=== PATIENT | female | born 1960 | race Hispanic/Latino ===

== ENCOUNTER 2019-01-12 16:58 | Emergency (ER) | payer MEDICARE ==
[2019-01-12] MEDS ORDERED: ACETAMINOPHEN EXTRA STRENGTH 500 MG TABLET ONE (18:24)
[2019-01-12] MEDS ORDERED: IBUPROFEN 200 MG TAB ONE (18:25)
[2019-01-12] MEDS ORDERED: IBUPROFEN 400 MG TABLET ONE (18:25)
== END 2019-01-12 18:31 | disposition home or self-care (01) ==
LOC: EDH 16:58
DX: M25.562 Pain in left knee (principal); I10 Essential (primary) hypertension; E07.9 Disorder of thyroid, unspecified; F32.9 Major depressive disorder, single episode, unspecified; F41.9 Anxiety disorder, unspecified; Z96.652 Presence of left artificial knee joint
CPT/HCPCS: 73562

== ENCOUNTER 2019-05-16 15:30 | Inpatient (IN) | payer MEDICARE ==
[~2019-05-16] VITALS: Ht 152.4 cm; Wt 69.9 kg
[2019-05-16 16:08] VITALS: BP 148/62
[2019-05-16] MEDS ORDERED: AMLO10TA7 PO (16:14)
[2019-05-16] MEDS ORDERED: CLON1TAB12 PO (16:14)
[2019-05-16] MEDS ORDERED: LEVO125T95 PO (16:14)
[2019-05-16] MEDS ORDERED: IBUP-2070 PO (16:14)
[2019-05-16 16:23] LABS: APPEARANCE,URINE Cloudy (CLEAR); BILIRUBIN,URINE Small (NEGATIVE); COLOR,URINE Dark Yellow (YELLOW); GLUCOSE, URINE (UA) Negative (NEGATIVE); KETONES,URINE Trace mg/dL (NEGATIVE); LEUKOCYTE ESTERASE ,URINE Small (NEGATIVE); NITRATE,URINE Negative (NEGATIVE); OCCULT BLOOD,URINE Negative (NEGATIVE); PH,URINE 5.5 (5.0-8.0); PROTEIN,URINE POS 1+ mg/dL (NEGATIVE)
[2019-05-16 16:34] LABS: BACTERIA,URINE Few /HPF (None Seen); MUCUS,URINE Moderate LPF (None Seen)
--- NOTE | 2019-05-16 18:33 | NUR ---
REPORTED ABNORMAL URINE LABS TO DR. CARIAS, NEW ORDERS TO GIVE PT GENTAMICIN 240MG IV IN HOLDING AREA DOS.
[2019-05-16] MEDS ORDERED: PHARMACY COMMUNICATION MISC SCH (18:45)
[2019-05-17] VITALS (22 sets, daily range): BP systolic 105–151; BP diastolic 59–81
[2019-05-17] MEDS ORDERED: GENTAMICIN SULFATE 240 MG in SODIUM CHLORIDE 0.9% 100 ML IV PRN (08:00)
[2019-05-17] MEDS ORDERED: LACTATED RINGERS 1000ML 1,000 ML IV ONE (09:14)
[2019-05-17] MEDS ORDERED: CEFAZOLIN SODIUM 1 GM VIAL ONE ×2 (10:01→11:23)
[2019-05-17] MEDS ORDERED: ACETAMINOPHEN 325 MG TAB ONE (12:31)
[2019-05-17] MEDS ORDERED: KETOROLAC TROMETHAMINE 15MG/ML ONE (12:31)
[2019-05-17] MEDS ORDERED: CELECOXIB 200 MG CAP ONE (12:32)
[2019-05-17] MEDS ORDERED: OXYCODONE HCL 10 MG TAB.SR.12H PO ONE (12:32)
[2019-05-17] MEDS ORDERED: TRANEXAMIC ACID 1000MG/10ML IV ONE ×2 (13:00→17:04)
[2019-05-17] MEDS ORDERED: GENTAMICIN SULFATE 240 MG in SODIUM CHLORIDE 0.9% 100 ML IV SCH (13:00)
[2019-05-17] MEDS ORDERED: MIDAZOLAM HCL 1 MG/ML 2ML VIAL ONE (13:22)
[2019-05-17] MEDS ORDERED: FENTANYL CITRATE PF 50 MCG/1 ML 2ML VIAL ONE ×2 (13:22→16:52)
[2019-05-17] MEDS ORDERED: PROPOFOL 10 MG/ML 20ML VIAL IV ONE (13:22)
[2019-05-17] MEDS ORDERED: LIDOCAINE PF 2% 5ML ABBOJECT ONE (13:22)
[2019-05-17] MEDS ORDERED: ROPIVACAINE 0.5% 5MG/ML 30ML IJ ONE (13:25)
[2019-05-17] MEDS ORDERED: ROCURONIUM 10MG/1ML SYR 10 MG/ML ML ONE (13:25)
[2019-05-17] MEDS ORDERED: NEOSTIGMINE 5MG/5ML SYR IV ONE (14:33)
[2019-05-17] MEDS ORDERED: GLYCOPYRROLATE 1 MG/5 ML SYRINGE ONE (14:33)
[2019-05-17] MEDS ORDERED: ONDANSETRON HCL 4 MG/2 ML VIAL ONE (15:30)
[2019-05-17] MEDS ORDERED: KETOROLAC TROMETHAMINE 30MG/ML ONE (15:30)
[2019-05-17] MEDS ORDERED: DEXAMETHASONE SOD PHOSPHATE 10MG/ML 1ML VIAL ONE (15:30)
[2019-05-17] MEDS ORDERED: TRAMADOL HCL 50 MG TABLET PO PRN (16:30)
[2019-05-17] MEDS ORDERED: POTASSIUM CHLORIDE 20 MEQ ERTAB PO PRN (16:30)
[2019-05-17] MEDS ORDERED: OXYCODONE HCL 5 MG TAB PO PRN (16:30)
[2019-05-17] MEDS ORDERED: POTASSIUM CHLORIDE 20MEQ/100ML 100 ML IV PRN (16:30)
[2019-05-17] MEDS ORDERED: ONDANSETRON HCL 4 MG/2 ML VIAL IVP PRN (16:30)
[2019-05-17] MEDS ORDERED: FERROUS FUMARATE 324 MG TABLET PO PRN (16:30)
[2019-05-17] MEDS ORDERED: LIDOCAINE HCL-MPF 1% 2ML VIAL IV PRN (16:30)
[2019-05-17] MEDS ORDERED: CALCIUM CARBONATE 500 MG TABLET PO PRN (16:30)
[2019-05-17] MEDS: ACETAMINOPHEN EXTRA STRENGTH 500 MG TABLET PO SCH (16:30)
[2019-05-17] MEDS ORDERED: POTASSIUM CHLORIDE 10% ELIXIR 20 MEQ/15 ML UDCUP PO PRN (16:30)
[2019-05-17] MEDS ORDERED: TEMAZEPAM 15 MG CAPSULE PO PRN (16:30)
[2019-05-17 16:35] LABS: BF EOSINOPHIL 1 %; BF LYMPHOCYTE 75 %; BF MESOTHELIAL 1 %; BF MONOCYTE 12 %
[2019-05-17 16:38] LABS: APPEARANCE BODY FLUID SLIGHTLY CLOUDY (CLEAR); COLOR,BODY FLUID RED (LT YELLOW); SPECIMENTYPE,BODY FLUID SYNOVIAL; TOTAL VOLUME,BODY FLUID 10 mL
[2019-05-17 16:41] LABS: BODY FLUID RBC 1650 /cu. mm.
[2019-05-17 16:43] LABS: BODY FLUID WBC 23 /cu. mm.
[2019-05-17] MEDS ORDERED: MEPERIDINE-PF 25 MG/ML SYG ONE ×2 (17:22→18:02)
[2019-05-17] MEDS: SODIUM CHLORIDE 0.9% 1000ML 1,000 ML IV SCH (18:25)
[2019-05-17] MEDS: KETOROLAC TROMETHAMINE 15MG/ML IV PRN (18:27)
[2019-05-17] MEDS ORDERED: CLONAZEPAM 1 MG TABLET PO PRN (18:45)
[2019-05-17] MEDS: ASPIRIN 325 MG TABLET PO SCH (20:22)
[2019-05-17] MEDS: CELECOXIB 200 MG CAP PO SCH (20:22)
[2019-05-17] MEDS: FAMOTIDINE 20MG TAB 20 MG TAB PO SCH (20:22)
[2019-05-17] MEDS: AMLODIPINE BESYLATE 5 MG TAB PO SCH (20:22)
[2019-05-17] MEDS: PREGABALIN 25 MG CAP PO SCH (20:22)
[2019-05-17] MEDS: OXYCODONE HCL 5 MG TAB PO PRN (20:23)
[2019-05-17] MEDS: CEFAZOLIN SODIUM 1 GM VIAL IVP SCH (21:39)
[2019-05-18] VITALS: BP 127/72
--- NOTE | 2019-05-18 | NUR ---
UNABLE TO VOID PATIENT UNABLE TO VOID, BLADDER PALPATION DISTENDED , BLADDER SCANNER SHOWING 693 CC,STRAIGHT CATHETER PERFORMED BY YARELIS BATEMAN R.N. USING A 16 GAUGE [place] CATHETER, TOLERATED WELL, OBTAINED 750 CC OF CLEAR YELLOW URINE, TOLERATED WELL
[2019-05-18] MEDS: ACETAMINOPHEN EXTRA STRENGTH 500 MG TABLET PO SCH ×4 (00:32→23:57)
[2019-05-18] MEDS: KETOROLAC TROMETHAMINE 15MG/ML IV PRN (00:32)
[2019-05-18] MEDS: SODIUM CHLORIDE 0.9% 1000ML 1,000 ML IV SCH ×2 (00:33→12:25)
[2019-05-18] MEDS: OXYCODONE HCL 5 MG TAB PO PRN (02:49)
[2019-05-18 04:00] VITALS: BP 134/72
[2019-05-18] MEDS ORDERED: LEVOTHYROXINE 125 MCG TABLET ONE (05:22)
[2019-05-18 05:23] LABS: HEMATOCRIT 35.2 % (36-48); MEAN CORPUSCULAR HEMOGLOBIN 29.8 pg (27.0-33.0); MEAN CORPUSCULAR HGB CONC 33.1 g/dL (32.0-36.0); MEAN CORPUSCULAR VOLUME 90.1 fL (79-99); PLATELET COUNT (AUTO) 357 K/uL (130-400); RED BLOOD CELL COUNT(AUTO) 3.91 MIL/uL (4.00-5.50); WHITE BLOOD COUNT (AUTO) 11.2 K/uL (4.8-10.8)
[2019-05-18] MEDS: LEVOTHYROXINE 125 MCG TABLET PO SCH (05:26)
[2019-05-18] MEDS: CEFAZOLIN SODIUM 1 GM VIAL IVP SCH (05:26)
[2019-05-18 05:34] LABS: CREATININE 0.5 mg/dL (0.5-1.5)
[2019-05-18] MEDS ORDERED: HYDROMORPHONE PCA 10 MG/50 ML 50 ML IV ONE (05:57)
[2019-05-18] MEDS ORDERED: NALOXONE HCL 0.4 MG/1 ML ML IVP PRN (06:00)
[2019-05-18] MEDS ORDERED: HYDROMORPHONE PCA 10 MG/50 ML 50 ML IV PRN (06:00)
[2019-05-18 08:00] VITALS: BP 128/69
[2019-05-18] MEDS: POLYETHYLENE GLYCOL 3350 17 GM POWD.PACK PO SCH (08:50)
[2019-05-18] MEDS: CELECOXIB 200 MG CAP PO SCH ×2 (08:51→21:51)
[2019-05-18] MEDS: ASPIRIN 325 MG TABLET PO SCH ×2 (08:51→21:50)
[2019-05-18] MEDS: FAMOTIDINE 20MG TAB 20 MG TAB PO SCH ×2 (08:52→21:51)
[2019-05-18] MEDS: PREGABALIN 25 MG CAP PO SCH ×2 (08:52→21:51)
--- NOTE | 2019-05-18 10:30 | NUR ---
INITIAL ANF REFERRAL MET W PT ALONE, AAO X3. S/P TKA REVISION, LIVES ALONE BUT WILL GO LIVE WTH DAUGHTER FAROOQ JOHNS"SHE HAS FIXED THINGS UP FOR ME" NO STAIRS IN THE HOME, HAS STD WALKER, HAS BENCH IN SHOWER, FAUSTINA FOR [facility] AND REFERRAL SENT- CALL RETURNED, ACCEPTED. ADDRESS CONFIRMED FOR [facility] [address] [address] Addendum: 05/18/19 at 1535 by KALA GUTIERREZ RN CM Amended: Links added.
[2019-05-18 12:00] VITALS: BP 126/65
[2019-05-18 16:00] VITALS: BP 134/60
[2019-05-18 19:00] VITALS: BP 138/62
[2019-05-18] MEDS: AMLODIPINE BESYLATE 5 MG TAB PO SCH (21:51)
[2019-05-19] VITALS: BP 112/70
[2019-05-19] MEDS: DiphenhydrAMINE HCL 50 MG/ML VIAL IVP PRN ×2 (00:10→13:40)
[2019-05-19 04:00] VITALS: BP 124/60
[2019-05-19] MEDS: LEVOTHYROXINE 125 MCG TABLET PO SCH (05:26)
[2019-05-19 07:37] VITALS: BP 108/58
--- NOTE | 2019-05-19 08:43 | NUR ---
ACCEPTED AT [facility]. WILL INFORM PRIMARY RN Addendum: 05/19/19 at 0847 by KALA GUTIERREZ RN CM Amended: Links added.
[2019-05-19] MEDS: ACETAMINOPHEN EXTRA STRENGTH 500 MG TABLET PO SCH ×2 (09:30→16:22)
[2019-05-19] MEDS: CELECOXIB 200 MG CAP PO SCH (09:30)
[2019-05-19] MEDS: ASPIRIN 325 MG TABLET PO SCH (09:30)
[2019-05-19] MEDS: PREGABALIN 25 MG CAP PO SCH (09:30)
[2019-05-19] MEDS: FAMOTIDINE 20MG TAB 20 MG TAB PO SCH (09:31)
[2019-05-19] MEDS: POLYETHYLENE GLYCOL 3350 17 GM POWD.PACK PO SCH (09:31)
[2019-05-19 11:35] VITALS: BP 120/80
[2019-05-19] MEDS ORDERED: ASPI-1012 PO (12:15)
[2019-05-19] MEDS ORDERED: HYDR-4457 PO (12:15)
[2019-05-19] MEDS ORDERED: BISACODYL 10 MG SUPP.RECT RC ONE (13:34)
[2019-05-19] MEDS ORDERED: BISACODYL 10 MG SUPP.RECT RC PRN (13:45)
[2019-05-19 17:03] VITALS: BP 136/60
--- NOTE | 2019-05-19 17:25 | NUR ---
DISCHARGE INSTRUCTIONS REVIEWED INSTRUCTIONS WITH PT, PRESCRIPTIONS GIVEN TO PT.
--- NOTE | 2019-05-19 17:45 | NUR ---
DR. JV LEUNG AWARE THAT DULCOLAX SUPPOSITORY ADMINISTERED AND NO REPORTED BOWEL MOVEMENT YET, PATIENT DOES REPORT PASSING GAS. LAST BOWEL MOVEMENT 05/16/19. INFORMED MD THAT PATIENT STATES SHE TAKES MIRALAX EVERYDAY AT HOME. MD DID OKAY TO PROCEED WITH DISCHARGE TODAY.
--- NOTE | 2019-05-19 17:45 | NUR ---
DISCHARGE PERFORMED DRESSING CHANGE TO LEFT KNEE INCISINE, CLEANSED WITH BETADINE, COVERED WITH 4X4 GAUZE AND SECURED WITH MEDIPORE TAPE. REAPPLIED FARZANA STOCKINGS AFTER DRESSING CHANGE. REPORT GIVEN TO NURSE OF [facility]. REINFORCED DISCHARGE TEACHING REGARDING RX, F/U WITH DR. CARIAS, FARZANA STOCKINGS, AND DR. CARIAS DISCHARGE INSTRUCTIONS. PATIENT VERBALIZES UNDERSTANDING OF DISCHARGE TEACHING. REMOVED 20GIV FROM LEFT FA, CATHETER TIP INTACT.
[2019-05-20] MEDS ORDERED: BISACODYL 10 MG SUPP.RECT RC PRN (16:30)
== END 2019-05-19 18:15 | disposition home health service (06) | DRG 468 ==
LOC: DAHIP 05-17 09:03 → 4AH 05-17 17:34
PROVIDERS: ADMIT Orthopaedic Surgery; ATTEND Orthopaedic Surgery
PROC: 3E0T3BZ Introduction of Anesthetic Agent into Peripheral Nerves and Plexi, Percutaneous Approach (ICD-10-PCS; 2019-05-17)
PROC: 0QRF0JZ Replacement of Left Patella with Synthetic Substitute, Open Approach (ICD-10-PCS; 2019-05-17)
PROC: 0SPW0JZ Removal of Synthetic Substitute from Left Knee Joint, Tibial Surface, Open Approach (ICD-10-PCS; principal; 2019-05-17 14:37)
PROC: 0SRW0J9 Replacement of Left Knee Joint, Tibial Surface with Synthetic Substitute, Cemented, Open Approach (ICD-10-PCS; 2019-05-17 14:37)
DX: M25.562 Pain in left knee (principal); Z96.652 Presence of left artificial knee joint; E03.9 Hypothyroidism, unspecified; I10 Essential (primary) hypertension; M21.00 Valgus deformity, not elsewhere classified, unspecified site; G89.29 Other chronic pain; M54.9 Dorsalgia, unspecified; Y83.8 Other surgical procedures as the cause of abnormal reaction of the patient, or of later complication, without mention of misadventure at the time of the procedure; Z82.49 Family history of ischemic heart disease and other diseases of the circulatory system; Y92.89 Other specified places as the place of occurrence of the external cause; Z83.3 Family history of diabetes mellitus; Z91.013 Allergy to seafood
CPT/HCPCS: 36415; 80048; 81001; 85027; 87070; 87076; 87077; 87186; 87205; 87641; 88300; 88304; 88311; 89051; 96365; 96374; 97039; A4344; G0378; J0690; J1100; J1170; J1200; J1580; J1885; J2001; J2175; J2250; J2405; J2704; J2710; J2795; J3010; J3490; J7030; J7120

== ENCOUNTER 2019-07-24 07:04 | Day surgery (SDC) | payer MEDICARE ==
[2019-07-21 14:05] LABS: BASOPHILS % (AUTO) 0.7 % (0.0-5.0); EOSINOPHILS % (AUTO) 1.9 % (0.0-8.0); HEMATOCRIT 40.2 % (36-48); LYMPHOCYTES % (AUTO) 32.8 % (21.0-51.0); MEAN CORPUSCULAR HEMOGLOBIN 29.1 pg (27.0-33.0); MEAN CORPUSCULAR VOLUME 88.1 fL (79-99); NEUTROPHILS % (AUTO) 56.6 % (40.0-77.0); PLATELET COUNT (AUTO) 400 K/uL (130-400); RED BLOOD CELL COUNT(AUTO) 4.56 MIL/uL (4.00-5.50); RED CELL DISTRIBUTION WIDTH 14.3 % (11.0-15.5)
[2019-07-21 14:14] VITALS: BP 143/61
[2019-07-21 14:14] LABS: CREATININE 0.6 mg/dL (0.5-1.5); POTASSIUM 4.2 mmol/L (3.5-5.1)
[2019-07-24] VITALS (14 sets, daily range): BP systolic 113–138; BP diastolic 44–79
[~2019-07-24] VITALS: Ht 152.4 cm; Wt 69.8 kg
[2019-07-24] MEDS: CEFAZOLIN SODIUM 1 GM VIAL IVP SCH ×2 (06:00→08:58)
[~2019-07-24 07:04] MED LIST: AMLO5TAB4 PO; CLON1TAB12 PO; LEVO125T95 PO
[2019-07-24] MEDS ORDERED: LACTATED RINGERS 1000ML 1,000 ML IV ONE (07:45)
[2019-07-24] MEDS ORDERED: SUCCINYLCHOLINE 200MG/10ML SYR ONE (08:11)
[2019-07-24] MEDS ORDERED: MIDAZOLAM HCL 1 MG/ML 2ML VIAL ONE (08:11)
[2019-07-24] MEDS ORDERED: LIDOCAINE PF 2% 5ML ABBOJECT ONE (08:11)
[2019-07-24] MEDS ORDERED: FENTANYL CITRATE PF 50 MCG/1 ML 2ML VIAL ONE ×2 (08:12→10:23)
[2019-07-24] MEDS ORDERED: PROPOFOL 10 MG/ML 20ML VIAL IV ONE (08:12)
[2019-07-24] MEDS ORDERED: ROCURONIUM 10MG/1ML SYR 10 MG/ML ML ONE (08:12)
[2019-07-24] MEDS ORDERED: ONDANSETRON HCL 4 MG/2 ML VIAL ONE (08:12)
[2019-07-24] MEDS ORDERED: NEOSTIGMINE 5MG/5ML SYR IV ONE (09:04)
[2019-07-24] MEDS ORDERED: LIDOCAINE HCL 4% LTA SOL 4 ML VIAL ONE (09:04)
[2019-07-24] MEDS ORDERED: GLYCOPYRROLATE 1 MG/5 ML SYRINGE ONE (09:04)
[2019-07-24] MEDS ORDERED: KETOROLAC TROMETHAMINE 30MG/ML ONE (09:46)
[2019-07-24] MEDS ORDERED: MEPERIDINE-PF 25 MG/ML SYG ONE (09:46)
[2019-07-24] MEDS ORDERED: CEPH500B PO (09:51)
[2019-07-24] MEDS ORDERED: MELO-108 PO (09:51)
[2019-07-24] MEDS ORDERED: ACET1TAB12 PO (09:51)
[2019-07-24] MEDS ORDERED: MORPHINE SULFATE 2 MG/ML 1ML SYG ONE (10:04)
== END 2019-07-24 12:05 | disposition home or self-care (01) ==
LOC: DAH 07:04
PROVIDERS: ATTEND Orthopaedic Surgery
DX: M23.203 Derangement of unspecified medial meniscus due to old tear or injury, right knee (principal); M19.90 Unspecified osteoarthritis, unspecified site; I10 Essential (primary) hypertension; E03.9 Hypothyroidism, unspecified; Z98.890 Other specified postprocedural states; Z79.899 Other long term (current) drug therapy; G89.29 Other chronic pain; K21.9 Gastro-esophageal reflux disease without esophagitis; M94.261 Chondromalacia, right knee
CPT/HCPCS: 29881; 36415; 80048; 85025; A4215; A4221; A4222; A4223; A4606; A4649; A4663; A4930; A5120; A6223; J0330; J0690; J1885; J2001; J2175; J2250; J2405; J2704; J2710; J3010 ×2; J3490; J7120

== ENCOUNTER 2020-03-11 11:46 | Day surgery (SDC) | payer MEDICARE ==
[2020-03-08 15:44] VITALS: BP 129/71
[2020-03-11] VITALS (20 sets, daily range): BP systolic 111–143; BP diastolic 50–75
[~2020-03-11] VITALS: Ht 154.9 cm; Wt 71.2 kg
[~2020-03-11 11:46] MED LIST changes: +AMLO10TA7 PO; -AMLO5TAB4 PO; +IBUP-2070 PO; +LEVO112T7 PO; -LEVO125T95 PO; +PANT40TA25 PO
[2020-03-11] MEDS ORDERED: FENTANYL CITRATE PF 50 MCG/1 ML 2ML VIAL ONE (12:11)
[2020-03-11] MEDS ORDERED: MIDAZOLAM HCL 1 MG/ML 2ML VIAL ONE (12:11)
[2020-03-11] MEDS ORDERED: FLUMAZENIL 0.1MG/1ML 5ML VIAL IV ONE (12:12)
[2020-03-11] MEDS ORDERED: NALOXONE HCL 0.4 MG/1 ML ML ONE (12:13)
[2020-03-11] MEDS ORDERED: LIDOCAINE HCL 1% 20 ML VIAL ONE (12:19)
[2020-03-11] MEDS ORDERED: DEXAMETHASONE SOD PHOSPHATE 4 MG/ML 1ML VIAL ONE (12:19)
[2020-03-11] MEDS ORDERED: BUPIVACAINE/PF 0.25% 30ML VIAL IJ ONE (12:19)
[2020-03-11] MEDS ORDERED: SODIUM CHLORIDE 0.9% 10 ML VIAL ONE (12:36)
[2020-03-11] MEDS ORDERED: IOPAMIDOL 10 ML VIAL ONE (12:44)
[2020-03-11] MEDS ORDERED: DiphenhydrAMINE HCL 50 MG/ML VIAL ONE (12:55)
[2020-03-11] MEDS ORDERED: LACTATED RINGERS 1000ML 1,000 ML IV ONE (14:10)
--- NOTE | 2020-03-11 14:45 | NUR ---
PAIN PAIN DR. IRAHETA MADE AWARE PT STILL RATES RIGHT KNEE PAIN A TEN OUT OF TEN. STATES PT STARTED PRIOR WITH A PAIN LEVEL OF TEN. INSTRUCTED TO HAVE PT GO HOME AND TAKE HER HOME MEDICATIONS. PT AND DAUGHTER BOTH VERBALIZED UNDERSTANDING.
== END 2020-03-11 15:25 | disposition home or self-care (01) ==
LOC: DAH 11:46
PROVIDERS: ATTEND Family Medicine Sports Medicine
DX: M12.861 Other specific arthropathies, not elsewhere classified, right knee (principal); Z11.59 Encounter for screening for other viral diseases; M25.561 Pain in right knee; G89.29 Other chronic pain; I10 Essential (primary) hypertension; E03.9 Hypothyroidism, unspecified; Z91.013 Allergy to seafood; Z79.891 Long term (current) use of opiate analgesic; Z96.653 Presence of artificial knee joint, bilateral; Z98.890 Other specified postprocedural states; Z79.899 Other long term (current) drug therapy; Z83.3 Family history of diabetes mellitus; Z82.49 Family history of ischemic heart disease and other diseases of the circulatory system
CPT/HCPCS: 36415; 64454; 73562; A4215; A4216; A4221; A4222; A4223 ×2; A4663; J1100; J1200; J2250; J3010; J3490; J7120; Q9966; U0003; J2310

== ENCOUNTER 2020-03-27 09:00 | Inpatient (IN) | payer MEDICARE ==
[~2020-03-27] VITALS: Ht 152.4 cm; Wt 70.9 kg
[~2020-03-27 09:00] MED LIST changes: -IBUP-2070 PO; -PANT40TA25 PO; +PANT40TA54 PO
[2020-05-20 12:06] LABS: APPEARANCE,URINE Clear (CLEAR); BILIRUBIN,URINE Negative (NEGATIVE); COLOR,URINE Yellow (YELLOW); GLUCOSE, URINE (UA) Negative (NEGATIVE); KETONES,URINE Negative (NEGATIVE); LEUKOCYTE ESTERASE ,URINE Trace (NEGATIVE); NITRATE,URINE Negative (NEGATIVE); OCCULT BLOOD,URINE Negative (NEGATIVE); PH,URINE 5.5 (5.0-8.0); PROTEIN,URINE Negative (NEGATIVE)
[2020-05-20 12:06] LABS: BASOPHILS % (AUTO) 0.3 % (0.0-5.0); EOSINOPHILS % (AUTO) 2.6 % (0.0-8.0); HEMATOCRIT 35.2 % (36-48); LYMPHOCYTES % (AUTO) 38.9 % (21.0-51.0); MEAN CORPUSCULAR HEMOGLOBIN 23.5 pg (27.0-33.0); MEAN CORPUSCULAR HGB CONC 30.4 g/dL (32.0-36.0); MEAN CORPUSCULAR VOLUME 77.2 fL (79-99); MONOCYTES % (AUTO) 7.9 % (3.0-13.0); NEUTROPHILS % (AUTO) 50.1 % (40.0-77.0); PLATELET COUNT (AUTO) 380 K/uL (130-400); RED BLOOD CELL COUNT(AUTO) 4.56 MIL/uL (4.00-5.50); WHITE BLOOD COUNT (AUTO) 6.4 K/uL (4.8-10.8)
[2020-05-20 12:21] LABS: CREATININE 0.6 mg/dL (0.5-1.5); POTASSIUM 4.2 mmol/L (3.5-5.1)
[2020-05-20 12:29] LABS: INR 0.93 (0.85-1.15); PROTHROMBIN TIME 10.1 SEC (9.6-11.6)
[2020-05-20 12:32] LABS: BACTERIA,URINE Rare /HPF (None Seen); MUCUS,URINE Few LPF (None Seen); RBC,URINE 0-1 /HPF (0-1); SQUAMOUS EPITHELIAL CELL,UR Rare /HPF (0-2); WBC,URINE 0-1 /HPF (0-1)
[2020-05-24 10:52] VITALS: BP 134/66
[2020-05-24] MEDS ORDERED: FISH OIL PO (11:55)
[2020-05-24] MEDS ORDERED: ASCO500C18 PO (11:55)
[2020-05-24] MEDS ORDERED: MV-M1TAB57 PO (11:55)
[2020-05-24] MEDS ORDERED: VENL-53 PO (11:55)
--- NOTE | 2020-05-24 12:37 | NUR ---
LABS ABNORMAL H&H, AND URINE REPORTED TO DR. CARIAS. ORDERS RECEIVED TO TYPE AND SCREEN DOS, NO ORDERS FOR URINE REPORTED
[2020-05-27] VITALS (25 sets, daily range): BP systolic 113–148; BP diastolic 57–93
[2020-05-27] MEDS ORDERED: LACTATED RINGERS 1000ML 1,000 ML IV ONE (08:48)
--- NOTE | 2020-05-27 09:00 | NUR ---
PREOP PT ARRIVED VIA W/C PT IN NO DISTRESS. PT REPORTED SHE FELL YESTERDAY ON HER RT KNEE. DR CARIAS WAS INFORMED AND EVAL KNEE. NO NEW ORDERS AT THIS TIME
[2020-05-27] MEDS ORDERED: PROPOFOL 10 MG/ML 20ML VIAL IV ONE (09:11)
[2020-05-27] MEDS ORDERED: LIDOCAINE PF 2% 5ML ABBOJECT ONE (09:11)
[2020-05-27] MEDS ORDERED: ROCURONIUM 10MG/1ML SYR 10 MG/ML ML ONE (09:11)
[2020-05-27] MEDS ORDERED: MIDAZOLAM HCL 1 MG/ML 2ML VIAL ONE (09:11)
[2020-05-27] MEDS ORDERED: ROPIVACAINE 0.5% 5MG/ML 30ML IJ ONE ×2 (09:12→09:48)
[2020-05-27] MEDS ORDERED: TRANEXAMIC ACID 1000MG/10ML ONE (09:23)
[2020-05-27] MEDS ORDERED: CEFAZOLIN SODIUM 1 GM VIAL ONE (09:23)
[2020-05-27] MEDS: CEFAZOLIN SODIUM 1 GM VIAL IVP SCH ×3 (09:35→16:46)
[2020-05-27] MEDS ORDERED: PHENYLEPHRINE HCL 10 MG/ML 1ML VIAL IV ONE (10:23)
[2020-05-27] MEDS ORDERED: EPHEDRINE SULFATE 50 MG/ML AMPULE ONE (10:24)
[2020-05-27] MEDS ORDERED: FENTANYL CITRATE PF 50 MCG/1 ML 2ML VIAL ONE (10:36)
[2020-05-27] MEDS ORDERED: CEFAZOLIN SODIUM 1 GM VIAL IRRIG ONE (10:48)
[2020-05-27] MEDS ORDERED: GLYCOPYRROLATE 1 MG/5 ML SYRINGE ONE (11:17)
[2020-05-27] MEDS ORDERED: NEOSTIGMINE 5MG/5ML SYR IV ONE (11:17)
[2020-05-27] MEDS ORDERED: ONDANSETRON HCL 4 MG/2 ML VIAL ONE (11:19)
[2020-05-27] MEDS ORDERED: POTASSIUM CHLORIDE 20 MEQ ERTAB PO PRN (11:30)
[2020-05-27] MEDS ORDERED: TRAMADOL HCL 50 MG TABLET PO PRN (11:30)
[2020-05-27] MEDS ORDERED: CALCIUM CARBONATE 500 MG TABLET PO PRN (11:30)
[2020-05-27] MEDS ORDERED: POTASSIUM CHLORIDE 10% ELIXIR 20 MEQ/15 ML UDCUP PO PRN (11:30)
[2020-05-27] MEDS ORDERED: POTASSIUM CHLORIDE 20MEQ/100ML 100 ML IV PRN (11:30)
[2020-05-27] MEDS ORDERED: TEMAZEPAM 15 MG CAPSULE PO PRN (11:30)
[2020-05-27] MEDS ORDERED: DiphenhydrAMINE HCL 50 MG/ML VIAL IVP PRN (11:30)
[2020-05-27] MEDS ORDERED: LIDOCAINE HCL-MPF 1% 2ML VIAL IV PRN (11:30)
[2020-05-27] MEDS: ACETAMINOPHEN EXTRA STRENGTH 500 MG TABLET PO SCH ×2 (11:30→20:13)
[2020-05-27] MEDS ORDERED: FERROUS FUMARATE 324 MG TABLET PO PRN (11:30)
[2020-05-27] MEDS ORDERED: OXYCODONE HCL 5 MG TAB PO PRN (11:30)
[2020-05-27] MEDS ORDERED: MEPERIDINE-PF 25 MG/ML SYG ONE ×3 (12:10→13:12)
[2020-05-27] MEDS ORDERED: KETOROLAC TROMETHAMINE 30MG/ML ONE (12:38)
[2020-05-27] MEDS: SODIUM CHLORIDE 0.9% 1000ML 1,000 ML IV SCH ×2 (13:40→21:27)
[2020-05-27] MEDS ORDERED: HYDROMORPHONE PCA 10 MG/50 ML 50 ML IV PRN (13:45)
--- NOTE | 2020-05-27 14:16 | NUR ---
PHARMACY SPOKE TO IGNACIO FROM PHARMACY TO REPORT DILAUDID RADAR TECHNICIAN CARTRIDGES NOT AVAILABLE IN [facility] AND NEED TO BE RESTOCKED.
--- NOTE | 2020-05-27 14:50 | NUR ---
PHARMACY HAVE NOT RECEIVED DILAUDID LIBRARY PAGE CARTRIDGE YET. SPOKE TO POONAM FROM PHARMACY AND INFORMED I HAD CALLED ALREADY AND STILL WAITING TO RECEIVE MEDICATION.
--- NOTE | 2020-05-27 17:40 | NUR ---
CM NOTE/FAUSTINA UNABLE TO MEET WITH PATIENT, NEXT OF KIN CALLED, FAROOQ HORAN. FAUSTINA COMPLETED FOR [facility] AND ANY DME IN NETWORK.
[2020-05-27 19:50] LABS: APPEARANCE BODY FLUID BLOODY (CLEAR); BODY FLUID WBC 16 /cu. mm.; COLOR,BODY FLUID RED (LT YELLOW); SPECIMENTYPE,BODY FLUID SYNOVIAL; TOTAL VOLUME,BODY FLUID 10 mL
[2020-05-27 19:51] LABS: BODY FLUID RBC 26600 /cu. mm.
[2020-05-27] MEDS: CELECOXIB 200 MG CAP PO SCH (20:12)
[2020-05-27] MEDS: PREGABALIN 25 MG CAP PO SCH (20:12)
[2020-05-27] MEDS: ASPIRIN 81MG TAB.CHEW PO SCH (20:12)
[2020-05-27] MEDS ORDERED: FAMOTIDINE 20MG TAB 20 MG TAB PO SCH (21:00)
--- NOTE | 2020-05-27 21:38 | NUR ---
NO VOID PATIENT UNABLE TO VOID ON HER OWN. PATIENT WAS SCANNED WITH BLADDER SCANNER AND SHOWED TO HAVE 755ML OF URINE IN BLADDER. PATIENT WAS THEN STRAIGHT CATHETERIZED AND DRAINED 800MLS.
[2020-05-27 21:42] LABS: BF LYMPHOCYTE 23 %
[2020-05-28] MEDS: CEFAZOLIN SODIUM 1 GM VIAL IVP SCH (00:15)
[2020-05-28] MEDS: OXYCODONE HCL 5 MG TAB PO PRN ×3 (02:37→20:06)
[2020-05-28] MEDS: ACETAMINOPHEN EXTRA STRENGTH 500 MG TABLET PO SCH ×3 (02:38→20:03)
--- NOTE | 2020-05-28 03:08 | NUR ---
ACTIVITY PATIENT ASSISTED TO EDGE OF BED TO DANGLE LEGS OFF BED PER ORDERS. PATIENT TOLERATED WELL AND ASSISTED BACK TO BED.
[2020-05-28 03:39] LABS: HEMATOCRIT 29.9 % (36-48); MEAN CORPUSCULAR HEMOGLOBIN 23.1 pg (27.0-33.0); MEAN CORPUSCULAR HGB CONC 30.1 g/dL (32.0-36.0); MEAN CORPUSCULAR VOLUME 76.9 fL (79-99); PLATELET COUNT (AUTO) 356 K/uL (130-400); RED BLOOD CELL COUNT(AUTO) 3.89 MIL/uL (4.00-5.50); RED CELL DISTRIBUTION WIDTH 17.7 % (11.0-15.5); WHITE BLOOD COUNT (AUTO) 8.9 K/uL (4.8-10.8)
[2020-05-28 03:54] LABS: CREATININE 0.5 mg/dL (0.5-1.5)
[2020-05-28 04:00] VITALS: BP 143/88
[2020-05-28] MEDS ORDERED: LEVOTHYROXINE 112 MCG TABLET ONE (04:52)
[2020-05-28] MEDS: ONDANSETRON HCL 4 MG/2 ML VIAL IVP PRN ×4 (04:54→20:03)
[2020-05-28] MEDS: LEVOTHYROXINE 112 MCG TABLET PO SCH (04:54)
[2020-05-28] MEDS: SODIUM CHLORIDE 0.9% 1000ML 1,000 ML IV SCH ×2 (07:27→10:55)
[2020-05-28] MEDS: CLONAZEPAM 1 MG TABLET PO PRN ×2 (07:52→20:04)
[2020-05-28 08:06] VITALS: BP 153/76
[2020-05-28] MEDS: FISH OIL 1000 MG/CAP PO SCH (09:00)
[2020-05-28] MEDS ORDERED: NON-FORMULARY MEDICATION 1 EACH (Ascorbic Acid (Vitamin C) 500 MG) PO SCH (09:00)
[2020-05-28] MEDS ORDERED: VENLAFAXINE HCL 37.5 MG PO SCH (09:00)
[2020-05-28] MEDS: VENLAFAXINE HCL XR 37.5 MG CAP PO SCH (09:00)
[2020-05-28] MEDS: PANTOPRAZOLE SODIUM 40 MG TABLET.DR PO SCH (09:00)
[2020-05-28] MEDS ORDERED: NON-FORMULARY MEDICATION 1 EACH (Amlodipine Besylate 10 MG) PO SCH (09:00)
[2020-05-28] MEDS: ASCORBIC ACID 500 MG TAB PO SCH (09:00)
[2020-05-28] MEDS ORDERED: FISH OIL 1400 MG PO SCH (09:00)
[2020-05-28] MEDS: AMLODIPINE BESYLATE 5 MG TAB PO SCH (09:00)
[2020-05-28] MEDS: CELECOXIB 200 MG CAP PO SCH ×2 (09:47→21:07)
[2020-05-28] MEDS: ASPIRIN 81MG TAB.CHEW PO SCH ×2 (09:47→20:04)
[2020-05-28] MEDS: POLYETHYLENE GLYCOL 3350 17 GM POWD.PACK PO SCH (09:48)
[2020-05-28] MEDS: PREGABALIN 25 MG CAP PO SCH ×2 (09:48→20:04)
--- NOTE | 2020-05-28 10:00 | NUR ---
DCP CM met with pt discussed dc plans. Pt is semi-independent prior to admission, lives at home w/spouse, daughter lives close by. Pt has a current working standard walker, raised commode, handicapped restroom w/rails, cane, rollator walker. Pt verbalized she has 18 stairs inside the house, but she had prepared a room on 1st floor before surgery and she will be staying on 1st floor. Pt agreeable for [facility], consent signed. Uses [facility] on [address] for meds. Feels safe to go back home, spouse and daughter able to assist with transportation and needs as necessary. DC plan to home w/HH, pt already has working current DME from previous surgery early this year. DC plan to home w/HH. CM to cont to follow up. Addendum: 05/28/20 at 1645 by DENA GIVENS LVN CM Amended: Links added.
--- NOTE | 2020-05-28 11:05 | NUR ---
1050 pt signed IM Letter, I faxed IM Letter to [phone] and placed in chart under consent tab. Patient complained of room being to hot, I placed a work order in to [employer],ticket#[id number].
[2020-05-28 11:26] VITALS: BP 128/55
--- NOTE | 2020-05-28 11:44 | NUR ---
CM Note: [facility] Home Health pending approval CM obtained consent for [facility]. Faxed order, clinicals, PT, confirmation received. Pt pending approval. primary nurse aware. CM to cont to follow up.
--- NOTE | 2020-05-28 15:43 | NUR ---
CM Note: [facility] approval CM spoke to Neela hansen/ADRIA STOCKTON. pt has approval. Has own current working DME. Primary nurse aware. Dr Hall made aware of approval. CM to cont to follow up.
[2020-05-28 16:21] VITALS: BP 130/66
[2020-05-28 20:00] VITALS: BP 125/62
[2020-05-28 23:50] VITALS: BP 122/68
[2020-05-29] MEDS: OXYCODONE HCL 5 MG TAB PO PRN ×3 (00:10→08:25)
[2020-05-29 04:00] VITALS: BP 118/69
[2020-05-29] MEDS: ACETAMINOPHEN EXTRA STRENGTH 500 MG TABLET PO SCH ×3 (04:07→19:30)
[2020-05-29] MEDS: CLONAZEPAM 1 MG TABLET PO PRN (04:07)
[2020-05-29] MEDS: LEVOTHYROXINE 112 MCG TABLET PO SCH (04:10)
[2020-05-29 08:11] VITALS: BP 119/69
[2020-05-29] MEDS: VENLAFAXINE HCL XR 37.5 MG CAP PO SCH (08:25)
[2020-05-29] MEDS: FISH OIL 1000 MG/CAP PO SCH (08:25)
[2020-05-29] MEDS: POLYETHYLENE GLYCOL 3350 17 GM POWD.PACK PO SCH (08:26)
[2020-05-29] MEDS: ASPIRIN 81MG TAB.CHEW PO SCH ×2 (08:26→19:40)
[2020-05-29] MEDS: ASCORBIC ACID 500 MG TAB PO SCH (08:26)
[2020-05-29] MEDS: CELECOXIB 200 MG CAP PO SCH ×2 (08:26→19:40)
[2020-05-29] MEDS: PREGABALIN 25 MG CAP PO SCH ×2 (08:26→19:40)
[2020-05-29] MEDS: PANTOPRAZOLE SODIUM 40 MG TABLET.DR PO SCH (08:26)
[2020-05-29] MEDS: AMLODIPINE BESYLATE 5 MG TAB PO SCH (08:26)
[2020-05-29 11:17] VITALS: BP 116/72
[2020-05-29] MEDS: KETOROLAC TROMETHAMINE 15MG/ML IV PRN ×2 (12:25→19:39)
[2020-05-29 15:40] VITALS: BP 122/59
[2020-05-29] MEDS ORDERED: METOCLOPRAMIDE 10 MG/2 ML VIAL ONE (18:22)
[2020-05-29] MEDS ORDERED: BISACODYL 10 MG SUPP.RECT RC ONE (18:22)
[2020-05-29] MEDS ORDERED: BISACODYL 10 MG SUPP.RECT RC SCH (18:45)
[2020-05-29] MEDS ORDERED: METOCLOPRAMIDE 10 MG/2 ML VIAL IVP SCH (18:45)
[2020-05-29] MEDS: NS-20 MEQ KCL 1000ML 1,000 ML IV SCH (19:39)
[2020-05-29 20:00] VITALS: BP 131/61
[2020-05-29 23:50] VITALS: BP 151/82
[2020-05-30] MEDS: ACETAMINOPHEN EXTRA STRENGTH 500 MG TABLET PO SCH ×2 (02:45→07:49)
[2020-05-30] MEDS: KETOROLAC TROMETHAMINE 15MG/ML IV PRN (03:13)
[2020-05-30] MEDS: LEVOTHYROXINE 112 MCG TABLET PO SCH (03:16)
[2020-05-30 03:58] LABS: HEMATOCRIT 26.4 % (36-48); MEAN CORPUSCULAR HEMOGLOBIN 23.8 pg (27.0-33.0); MEAN CORPUSCULAR HGB CONC 31.1 g/dL (32.0-36.0); MEAN CORPUSCULAR VOLUME 76.7 fL (79-99); RED BLOOD CELL COUNT(AUTO) 3.44 MIL/uL (4.00-5.50); RED CELL DISTRIBUTION WIDTH 17.8 % (11.0-15.5); WHITE BLOOD COUNT (AUTO) 18.5 K/uL (4.8-10.8)
[2020-05-30 03:59] VITALS: BP 159/75
[2020-05-30] MEDS: NS-20 MEQ KCL 1000ML 1,000 ML IV SCH (04:24)
[2020-05-30 04:34] LABS: CREATININE 0.5 mg/dL (0.5-1.5); POTASSIUM 3.7 mmol/L (3.5-5.1)
[2020-05-30 08:19] VITALS: BP 151/72
[2020-05-30] MEDS ORDERED: HYDR-4457 PO (08:20)
[2020-05-30] MEDS ORDERED: ASPI-1005 PO (08:20)
[2020-05-30] MEDS: POLYETHYLENE GLYCOL 3350 17 GM POWD.PACK PO SCH (09:10)
[2020-05-30] MEDS: ASPIRIN 81MG TAB.CHEW PO SCH (09:14)
[2020-05-30] MEDS: VENLAFAXINE HCL XR 37.5 MG CAP PO SCH (09:14)
[2020-05-30] MEDS: FISH OIL 1000 MG/CAP PO SCH (09:14)
[2020-05-30] MEDS: PANTOPRAZOLE SODIUM 40 MG TABLET.DR PO SCH (09:14)
[2020-05-30] MEDS: OXYCODONE HCL 5 MG TAB PO PRN (09:15)
[2020-05-30] MEDS: ASCORBIC ACID 500 MG TAB PO SCH (09:15)
[2020-05-30] MEDS: CELECOXIB 200 MG CAP PO SCH (09:15)
[2020-05-30] MEDS: PREGABALIN 25 MG CAP PO SCH (09:16)
[2020-05-30] MEDS: AMLODIPINE BESYLATE 5 MG TAB PO SCH (09:16)
[2020-05-30] MEDS ORDERED: BISACODYL 10 MG SUPP.RECT RC PRN (11:30)
[2020-05-30 11:41] VITALS: BP 126/73
--- NOTE | 2020-05-30 12:30 | NUR ---
D/C REPORT CALLED AND FAXED TO JABARI IGNACIO AT [facility]
--- NOTE | 2020-05-30 13:40 | NUR ---
d/c paperwork for after care for a knee replacement given to patient; she stated understanding of all instructions which includes--physical activity with wbat and walker, pain control meds with script for norco at [facility], anticoagulation therapy to take aspirin 81mg 2x a day for 1 month, signs and symptoms of an infection to watch for and report to md, call md for any other concerns or return to the ed for sob, chest pain or ams and incision line care to leave current christiano dressing in place that i have just applied and have home health remove it on 06-03-20 christiano dressing changed prior to d/c--pt has a well approx. inc. line with absorbable sutures in place, mod. edema noted, no fresh drainage or redness; inc. line cleansed with betadine and new christiano dressing applied---i have instructed pt on how to care for the dressing and battery pack and that its ok to shower and get dressing wet. Pt's here to pick her up, we assisted her down in wheelchair.
== END 2020-05-30 14:00 | disposition home health service (06) | DRG 488 ==
LOC: DAHIP 05-27 07:14 → 3AH 05-27 13:26
PROVIDERS: ADMIT Orthopaedic Surgery; ATTEND Orthopaedic Surgery
PROC: 0MN Bursae and Ligaments, Release (ICD-10-PCS; 2020-05-27)
PROC: 3E0T3BZ Introduction of Anesthetic Agent into Peripheral Nerves and Plexi, Percutaneous Approach (ICD-10-PCS; 2020-05-27)
PROC: 0SPC09Z Removal of Liner from Right Knee Joint, Open Approach (ICD-10-PCS; principal; 2020-05-27 09:44)
PROC: 0SUV09Z Supplement Right Knee Joint, Tibial Surface with Liner, Open Approach (ICD-10-PCS; 2020-05-27 09:44)
DX: T84.84XA Pain due to internal orthopedic prosthetic devices, implants and grafts, initial encounter (principal); K56.7 Ileus, unspecified; D62 Acute posthemorrhagic anemia; M24.561 Contracture, right knee; E03.9 Hypothyroidism, unspecified; Z20.828 Contact with and (suspected) exposure to other viral communicable diseases; I10 Essential (primary) hypertension; Z96.653 Presence of artificial knee joint, bilateral; G89.4 Chronic pain syndrome; M76.31 Iliotibial band syndrome, right leg; Y83.8 Other surgical procedures as the cause of abnormal reaction of the patient, or of later complication, without mention of misadventure at the time of the procedure; Y92.89 Other specified places as the place of occurrence of the external cause; Z82.49 Family history of ischemic heart disease and other diseases of the circulatory system; Z83.3 Family history of diabetes mellitus; Z91.013 Allergy to seafood
CPT/HCPCS: 36415; 74018; 80048; 81001; 85025; 85027; 85610; 86850; 86900; 86901; 87070; 87076; 87205; 87641; 88300; 89051; 89060; 97039; G0378; J0690; J1170; J1200; J1885; J2001; J2175; J2250; J2370; J2405; J2704; J2710; J2765; J2795; J3010; J3480; J3490; J7030; J7120; U0003

== ENCOUNTER → 2020-07-05 | Outpatient (CLI) | payer MEDICARE ==
[~2020-07-05] MED LIST changes: +AMLO-258 PO; -AMLO10TA7 PO; +ASCO500C18 PO; +ASPI-1005 PO; +FISH OIL PO; +HYDR-4457 PO; +MV-M1TAB57 PO; +VENL-53 PO
== END | disposition home or self-care (01) ==
LOC: RAH 10:34
PROVIDERS: ATTEND Internal Medicine Gastroenterology
DX: K44.9 Diaphragmatic hernia without obstruction or gangrene (principal); K21.9 Gastro-esophageal reflux disease without esophagitis; K20.90 Esophagitis, unspecified without bleeding
CPT/HCPCS: 74240

== ENCOUNTER → 2020-08-02 | Outpatient (CLI) | payer MEDICARE | END | disposition home or self-care (01) | LOC: RAH 13:21 | PROVIDERS: ATTEND Family Medicine | DX: R51.9 Headache, unspecified (principal) | CPT/HCPCS: 70450 ==

== ENCOUNTER → 2020-08-28 | Outpatient (CLI) | payer MEDICARE | END | disposition home or self-care (01) | LOC: RAH 10:00 | PROVIDERS: ATTEND Family Medicine | DX: Z12.31 Encounter for screening mammogram for malignant neoplasm of breast (principal) | CPT/HCPCS: 77067 ==

== ENCOUNTER 2020-10-07 22:21 | Emergency (ER) | payer MEDICARE ==
[2020-10-07] MEDS ORDERED: ORPHENADRINE CITRATE 30 MG/ML ML ONE (23:27)
[2020-10-07] MEDS ORDERED: KETOROLAC TROMETHAMINE 60 MG/2 ML VIAL ONE (23:27)
== END 2020-10-08 00:38 | disposition home or self-care (01) ==
LOC: EDH 22:21
DX: S46.912A Strain of unspecified muscle, fascia and tendon at shoulder and upper arm level, left arm, initial encounter (principal); S00.93XA Contusion of unspecified part of head, initial encounter; F41.9 Anxiety disorder, unspecified; F32.9 Major depressive disorder, single episode, unspecified; I10 Essential (primary) hypertension; W18.39XA Other fall on same level, initial encounter; Y93.01 Activity, walking, marching and hiking; Y92.89 Other specified places as the place of occurrence of the external cause; Y99.8 Other external cause status
CPT/HCPCS: 70450; 72125; 73030; 96372 ×2; 99285; J1885; J2360

== ENCOUNTER 2021-03-09 08:00 | Observation (INO) | payer MEDICARE ==
[2021-03-09] VITALS (11 sets, daily range): BP systolic 130–166; BP diastolic 58–92
[~2021-03-09] VITALS: Ht 152.4 cm; Wt 71.7 kg
[2021-03-09 08:59] LABS: BASOPHILS % (AUTO) 0.2 % (0.0-5.0); EOSINOPHILS % (AUTO) 2.2 % (0.0-8.0); HEMATOCRIT 33.7 % (36-48); LYMPHOCYTES % (AUTO) 38.2 % (21.0-51.0); MEAN CORPUSCULAR HEMOGLOBIN 23.9 pg (27.0-33.0); MEAN CORPUSCULAR HGB CONC 30.3 g/dL (32.0-36.0); MEAN CORPUSCULAR VOLUME 78.9 fL (79-99); MONOCYTES % (AUTO) 10.7 % (3.0-13.0); NEUTROPHILS % (AUTO) 48.6 % (40.0-77.0); PLATELET COUNT (AUTO) 366 K/uL (130-400); RED BLOOD CELL COUNT(AUTO) 4.27 MIL/uL (4.00-5.50); RED CELL DISTRIBUTION WIDTH 18.6 % (11.0-15.5); WHITE BLOOD COUNT (AUTO) 8.9 K/uL (4.8-10.8)
[2021-03-09] MEDS ORDERED: CLOPIDOGREL BISULFATE 75 MG TAB PO SCH (09:00)
[2021-03-09] MEDS ORDERED: LORAZEPAM 1 MG TABLET PO SCH (09:00)
[2021-03-09] MEDS ORDERED: ACETAMINOPHEN 500 MG TABLET PO SCH (09:00)
[2021-03-09] MEDS ORDERED: ASPIRIN 81MG TAB.CHEW PO SCH (09:00)
[2021-03-09 09:06] LABS: INR 0.98 (0.85-1.15); PROTHROMBIN TIME 10.7 SEC (9.6-11.6)
[2021-03-09 09:07] LABS: CREATININE 0.8 mg/dL (0.5-1.5); POTASSIUM 3.6 mmol/L (3.5-5.1)
[2021-03-09 09:12] LABS: ALBUMIN 3.8 g/dL (3.5-5.0); BILIRUBIN,TOTAL 0.3 mg/dL (0.2-1.0); MAGNESIUM 2.2 mg/dL (1.80-2.40); TOTAL PROTEIN, SERUM 8.4 g/dL (6.0-8.3)
[2021-03-09] MEDS ORDERED: AMLO-258 PO (10:02)
[2021-03-09] MEDS ORDERED: ATOR40TA71 PO (10:04)
[2021-03-09] MEDS ORDERED: TOPI25TA48 PO (10:05)
[2021-03-09] MEDS ORDERED: CLON1TAB12 PO (10:06)
[2021-03-09] MEDS ORDERED: LEVO112T4 PO (10:08)
[2021-03-09] MEDS ORDERED: LISI10TA24 PO (10:09)
[2021-03-09 12:46] LABS: APPEARANCE,URINE CLEAR (CLEAR); BILIRUBIN,URINE NEGATIVE (NEGATIVE); COLOR,URINE YELLOW (YELLOW); GLUCOSE, URINE (UA) NEGATIVE (NEGATIVE); KETONES,URINE NEGATIVE (NEGATIVE); LEUKOCYTE ESTERASE ,URINE SMALL (NEGATIVE); NITRATE,URINE NEGATIVE (NEGATIVE); OCCULT BLOOD,URINE TRACE-INTACT (NEGATIVE); PROTEIN,URINE NEGATIVE (NEGATIVE); UROBILINOGEN,URINE 0.2 mg/dL (0.2-1.0)
[2021-03-09 12:59] LABS: BACTERIA,URINE Rare /HPF (None Seen); RBC,URINE 0-1 /HPF (0-1); SQUAMOUS EPITHELIAL CELL,UR Rare /HPF (0-2)
[2021-03-09] MEDS ORDERED: ACETAMINOPHEN 325 MG TAB PO PRN ×2 (15:00)
[2021-03-09] MEDS ORDERED: LACTULOSE 20 GM/30 ML UDCUP PO PRN (15:00)
[2021-03-09] MEDS ORDERED: ONDANSETRON HCL 4 MG/2 ML VIAL IV PRN (15:00)
[2021-03-09] MEDS: FAMOTIDINE/PF 20 MG/2 ML VIAL IV SCH (20:27)
[2021-03-09] MEDS ORDERED: FAMOTIDINE/PF 20 MG/2 ML VIAL IV SCH (21:00)
[2021-03-10 01:23] VITALS: BP 122/51
[2021-03-10 03:19] VITALS: BP 126/55
[2021-03-10 05:22] VITALS: BP 132/62
[2021-03-10 06:30] VITALS: BP 139/61
[2021-03-10] MEDS ORDERED: CLONAZEPAM 1 MG TABLET PO SCH (07:00)
[2021-03-10 07:15] LABS: BASOPHILS % (AUTO) 0.3 % (0.0-5.0); EOSINOPHILS % (AUTO) 3.1 % (0.0-8.0); HEMATOCRIT 34.2 % (36-48); MEAN CORPUSCULAR HEMOGLOBIN 23.3 pg (27.0-33.0); MEAN CORPUSCULAR HGB CONC 30.7 g/dL (32.0-36.0); MONOCYTES % (AUTO) 10.2 % (3.0-13.0); NEUTROPHILS % (AUTO) 54.1 % (40.0-77.0); PLATELET COUNT (AUTO) 369 K/uL (130-400); RED CELL DISTRIBUTION WIDTH 18.3 % (11.0-15.5); WHITE BLOOD COUNT (AUTO) 6.7 K/uL (4.8-10.8)
[2021-03-10 07:29] LABS: HEMOGLOBIN A1C 6.1 % (4.0-6.0)
[2021-03-10 07:31] LABS: ALBUMIN 3.6 g/dL (3.5-5.0); BILIRUBIN,TOTAL 0.5 mg/dL (0.2-1.0); CREATININE 0.6 mg/dL (0.5-1.5); POTASSIUM 3.5 mmol/L (3.5-5.1); TOTAL PROTEIN, SERUM 8.2 g/dL (6.0-8.3)
[2021-03-10] MEDS ORDERED: CLOPIDOGREL BISULFATE 75 MG TAB PO SCH (09:00)
[2021-03-10] MEDS ORDERED: TOPIRAMATE 25 MG TABLET PO SCH (09:00)
[2021-03-10] MEDS ORDERED: LISINOPRIL 10 MG TABLET PO SCH (09:00)
[2021-03-10] MEDS ORDERED: ASPIRIN 325 MG TABLET PO SCH (09:00)
[2021-03-10] MEDS ORDERED: LEVOTHYROXINE 112 MCG TABLET PO SCH (09:00)
[2021-03-10] MEDS ORDERED: AMLODIPINE BESYLATE 5 MG TAB PO SCH (09:00)
[2021-03-10] MEDS: FAMOTIDINE/PF 20 MG/2 ML VIAL IV SCH (09:58)
[2021-03-10] MEDS ORDERED: CLONAZEPAM 0.5 MG TABLET PO SCH (10:30)
[2021-03-10 10:39] VITALS: BP 135/61
[2021-03-10] MEDS ORDERED: METF-444 PO (14:36)
[2021-03-10 15:47] VITALS: BP_SYST 143; BP_DIAS 5; BP_DIAS 55
[2021-03-10] MEDS ORDERED: ATORVASTATIN CALCIUM 40 MG TABLET PO SCH (21:00)
== END 2021-03-10 15:40 | disposition home or self-care (01) ==
LOC: EDH 08:00 → EDHIP 14:48
PROVIDERS: ADMIT Internal Medicine; ATTEND Internal Medicine
DX: G45.9 Transient cerebral ischemic attack, unspecified (principal); G81.94 Hemiplegia, unspecified affecting left nondominant side; I10 Essential (primary) hypertension; E03.9 Hypothyroidism, unspecified; E11.9 Type 2 diabetes mellitus without complications; E78.49 Other hyperlipidemia; F41.1 Generalized anxiety disorder; F32.9 Major depressive disorder, single episode, unspecified; M19.90 Unspecified osteoarthritis, unspecified site; Z96.652 Presence of left artificial knee joint; Z79.82 Long term (current) use of aspirin; Z79.899 Other long term (current) drug therapy; Z91.013 Allergy to seafood
CPT/HCPCS: 36415 ×2; 70450; 70544; 70547; 70551; 71045; 80053 ×2; 80061; 81001; 82550; 83036; 83735; 84484; 85025 ×2; 85610; 92522; 92610; 93005; 93880; 96374; 96376; 99291; G0378 ×25; J3490 ×2

== ENCOUNTER 2021-05-07 16:39 | Emergency (ER) | payer MEDICARE ==
[~2021-05-07] VITALS: Ht 152.4 cm; Wt 73.9 kg
[~2021-05-07 16:39] MED LIST changes: +ATOR40TA71 PO; +LEVO112T4 PO; +LISI10TA24 PO; +METF-444 PO; +TOPI25TA48 PO
[2021-05-07] MEDS ORDERED: HYDROMORPHONE 0.5 MG SYG (0.5MG/0.5ML) IVP ONE (17:30)
[2021-05-07] MEDS ORDERED: LORAZEPAM 1 MG TABLET PO ONE (17:30)
[2021-05-07] MEDS ORDERED: ONDANSETRON 4MG INJ IVP ONE (17:30)
[2021-05-07] MEDS ORDERED: SOLU-MEDROL 125MG VIAL IVP ONE (18:00)
[2021-05-07] MEDS ORDERED: DiphenhydrAMINE HCL 50 MG/ML VIAL IV ONE (18:00)
[2021-05-07] MEDS ORDERED: DIPH25 PO (20:06)
[2021-05-07] MEDS ORDERED: FAMO-136 PO (20:06)
[2021-05-07 21:08] VITALS: BP 124/78
== END 2021-05-07 21:11 | disposition home or self-care (01) ==
LOC: EDH 16:39
DX: T63.461A Toxic effect of venom of wasps, accidental (unintentional), initial encounter (principal); F41.1 Generalized anxiety disorder; I10 Essential (primary) hypertension; Z79.52 Long term (current) use of systemic steroids; Z79.82 Long term (current) use of aspirin; Z79.84 Long term (current) use of oral hypoglycemic drugs; Z79.899 Other long term (current) drug therapy; Z86.73 Personal history of transient ischemic attack (TIA), and cerebral infarction without residual deficits; Y92.89 Other specified places as the place of occurrence of the external cause
CPT/HCPCS: 93005; 96374; 96375; J1170; J1200; J2405; J2930

== ENCOUNTER 2021-08-17 14:12 | Emergency (ER) | payer MEDICARE ==
[~2021-08-17] VITALS: Ht 152.4 cm; Wt 73.9 kg
[~2021-08-17 14:12] MED LIST changes: +DIPH25 PO; +FAMO-136 PO
[2021-08-17] MEDS ORDERED: KETOROLAC 60 MG VIAL (30MG/ML) ONE (14:27)
[2021-08-17] MEDS ORDERED: HYDROCODONE/ACETAMINOPHEN 10/325 MG TAB ONE (14:27)
[2021-08-17] MEDS ORDERED: HYDROCODONE/ACETAMINOPHEN 10/325 MG TAB PO ONE (14:30)
[2021-08-17] MEDS ORDERED: KETOROLAC 60 MG VIAL (30MG/ML) IM ONE (14:30)
[2021-08-17] MEDS ORDERED: KETO10 PO (15:18)
[2021-08-17] MEDS ORDERED: FENTANYL 50 MCG/HR PATCH TD ONE (15:23)
[2021-08-17] MEDS ORDERED: FENTANYL 50 MCG/HR PATCH TD SCH (15:30)
[2021-08-17 15:49] VITALS: BP 122/87
== END 2021-08-17 16:00 | disposition home or self-care (01) ==
LOC: EDH 14:12
DX: S76.011A Strain of muscle, fascia and tendon of right hip, initial encounter (principal); S80.01XA Contusion of right knee, initial encounter; F41.9 Anxiety disorder, unspecified; E78.00 Pure hypercholesterolemia, unspecified; I10 Essential (primary) hypertension; E03.9 Hypothyroidism, unspecified; Z98.890 Other specified postprocedural states; Z91.013 Allergy to seafood; W01.0XXA Fall on same level from slipping, tripping and stumbling without subsequent striking against object, initial encounter; Y93.89 Activity, other specified; Y92.89 Other specified places as the place of occurrence of the external cause; Y99.8 Other external cause status
CPT/HCPCS: 73502; 73562; 96372; 99284; J1885

== ENCOUNTER 2021-10-30 10:51 | Day surgery (SDC) | payer MEDICARE ==
[2021-10-28 14:35] LABS: BASOPHILS % (AUTO) 0.3 % (0.0-5.0); EOSINOPHILS % (AUTO) 2.2 % (0.0-8.0); HEMATOCRIT 36.1 % (36-48); MEAN CORPUSCULAR HEMOGLOBIN 24.1 pg (27.0-33.0); MEAN CORPUSCULAR HGB CONC 30.5 g/dL (32.0-36.0); MONOCYTES % (AUTO) 8.9 % (3.0-13.0); NEUTROPHILS % (AUTO) 53.5 % (40.0-77.0); PLATELET COUNT (AUTO) 342 K/uL (130-400); RED BLOOD CELL COUNT(AUTO) 4.57 MIL/uL (4.00-5.50); RED CELL DISTRIBUTION WIDTH 18.2 % (11.0-15.5); WHITE BLOOD COUNT (AUTO) 9.1 K/uL (4.8-10.8)
[2021-10-28 14:53] LABS: CREATININE 0.5 mg/dL (0.5-1.5); POTASSIUM 3.8 mmol/L (3.5-5.1)
[2021-10-29 12:02] VITALS: BP 144/76
[2021-10-30] VITALS (16 sets, daily range): BP systolic 123–137; BP diastolic 50–79
[~2021-10-30] VITALS: Ht 152.4 cm; Wt 75.7 kg
[~2021-10-30 10:51] MED LIST changes: -ASPI-1005 PO; -DIPH25 PO; -FAMO-136 PO; -FISH OIL PO; +FISH1CAP27 PO; -HYDR-4457 PO; -LEVO112T7 PO; -METF-444 PO; -MV-M1TAB57 PO; -PANT40TA54 PO; -TOPI25TA48 PO; -VENL-53 PO; +ZINC220T4 PO
[2021-10-30] MEDS ORDERED: CEFAZOLIN SODIUM 1 GM VIAL ONE (10:57)
[2021-10-30] MEDS ORDERED: LACTATED RINGERS 1000ML 1,000 ML IV ONE (10:57)
[2021-10-30] MEDS: CEFAZOLIN SODIUM 1 GM VIAL IVP ONE ×2 (11:28→15:49)
[2021-10-30] MEDS ORDERED: SUCCINYLCHOLINE CHLORIDE 20 MG/ML 10 ML VIAL ONE (14:24)
[2021-10-30] MEDS ORDERED: LIDOCAINE PF 100MG/5ML (2%) SYRINGE 5ML ONE (14:24)
[2021-10-30] MEDS ORDERED: ONDANSETRON 4MG INJ ONE (14:25)
[2021-10-30] MEDS ORDERED: PROPOFOL 10 MG/ML 20ML VIAL IV ONE (14:25)
[2021-10-30] MEDS ORDERED: DEXAMETHASONE SOD PHOSPHATE 10MG/ML 1ML VIAL ONE (14:25)
[2021-10-30] MEDS ORDERED: NEOSTIGMINE 5MG/5ML SYR IV ONE (14:25)
[2021-10-30] MEDS ORDERED: GLYCOPYRROLATE 1 MG/5 ML SYRINGE ONE (14:25)
[2021-10-30] MEDS ORDERED: SUCCINYLCHOLINE 200MG/10ML SYR ONE (14:25)
[2021-10-30] MEDS ORDERED: MIDAZOLAM HCL 1 MG/ML 2ML VIAL ONE ×2 (14:26→14:54)
[2021-10-30] MEDS ORDERED: FENTANYL CITRATE PF 50 MCG/1 ML 2ML VIAL ONE (14:26)
[2021-10-30] MEDS ORDERED: ROCURONIUM 10MG/1ML SYR 10 MG/ML ML ONE (14:26)
[2021-10-30] MEDS ORDERED: EPINEPHRINE 1 MG/ML 30ML VIAL IJ ONE (14:52)
[2021-10-30] MEDS ORDERED: HYDR-4060 PO (17:14)
[2021-10-30] MEDS ORDERED: CEPH500B PO (17:14)
[2021-10-30] MEDS ORDERED: MEPERIDINE-PF 25 MG/ML SYG ONE (17:43)
== END 2021-10-30 19:15 | disposition home or self-care (01) ==
LOC: DAH 10:51
PROVIDERS: ATTEND Orthopaedic Surgery
DX: M75.42 Impingement syndrome of left shoulder (principal); M25.812 Other specified joint disorders, left shoulder; Z20.822 Contact with and (suspected) exposure to COVID-19; M19.012 Primary osteoarthritis, left shoulder; G89.29 Other chronic pain; I10 Essential (primary) hypertension; E03.9 Hypothyroidism, unspecified; Z82.49 Family history of ischemic heart disease and other diseases of the circulatory system; Z83.3 Family history of diabetes mellitus; Z79.899 Other long term (current) drug therapy; Z98.890 Other specified postprocedural states
CPT/HCPCS: 29824; 29826; 36415; 64415; 76942; 80048; 85025; 87635; A4215; A4221; A4222; A4223; A4565; A4600; A4649; A4663; A4930 ×2; A5120; A6204; C9803; G0168; J0171; J0330 ×2; J0690; J1100; J2001; J2175; J2250 ×2; J2405; J2704; J2710; J3010; J3490; J7120 ×2

== ENCOUNTER → 2022-04-07 | Outpatient (CLI) | payer MEDICARE ==
[~2022-04-07] MED LIST changes: +CEPH500B PO; +HYDR-4060 PO
== END | disposition home or self-care (01) ==
LOC: RAH 07:32
PROVIDERS: ATTEND Internal Medicine Gastroenterology
DX: R14.0 Abdominal distension (gaseous) (principal); R68.81 Early satiety
CPT/HCPCS: 78264; A9541

== ENCOUNTER 2022-07-07 23:35 | Emergency (ER) | payer MEDICARE ==
[~2022-07-07] VITALS: Ht 152.4 cm; Wt 72.6 kg
[2022-07-07] MEDS ORDERED: ACETAMINOPHEN 500 MG TABLET ONE (23:44)
[2022-07-07 23:59] LABS: BASOPHILS % (AUTO) 0.2 % (0.0-5.0); EOSINOPHILS % (AUTO) 0.4 % (0.0-8.0); HEMATOCRIT 32.3 % (36-48); LYMPHOCYTES % (AUTO) 11.7 % (21.0-51.0); MEAN CORPUSCULAR HGB CONC 33.1 g/dL (32.0-36.0); MEAN CORPUSCULAR VOLUME 78.6 fL (79-99); MONOCYTES % (AUTO) 8.3 % (3.0-13.0); NEUTROPHILS % (AUTO) 79.1 % (40.0-77.0); PLATELET COUNT (AUTO) 322 K/uL (130-400); RED BLOOD CELL COUNT(AUTO) 4.11 MIL/uL (4.00-5.50); RED CELL DISTRIBUTION WIDTH 16.5 % (11.0-15.5); WHITE BLOOD COUNT (AUTO) 9.6 K/uL (4.8-10.8)
[2022-07-07] MEDS ORDERED: SOLU-MEDROL 125MG VIAL ONE (23:59)
[2022-07-08] MEDS ORDERED: SOLU-MEDROL 125MG VIAL IVP ONE
[2022-07-08] MEDS ORDERED: ACETAMINOPHEN 500 MG TABLET PO ONE
[2022-07-08 00:06] LABS: CREATININE 0.6 mg/dL (0.5-1.5); POTASSIUM 3.3 mmol/L (3.5-5.1)
[2022-07-08] MEDS ORDERED: IPRATROPIUM/ALBUTEROL SULFATE 3 ML SOLUTION IH ONE ×2 (00:07)
[2022-07-08 00:13] LABS: INR 0.99 (0.85-1.15); PROTHROMBIN TIME 10.8 SEC (9.6-11.6)
[2022-07-08 00:15] LABS: ALBUMIN 3.9 g/dL (3.5-5.0); PARTIAL THROMBOPLASTIN TIME 28.2 SEC (26.3-35.5); TOTAL PROTEIN, SERUM 8.1 g/dL (6.0-8.3)
[2022-07-08] MEDS ORDERED: 0.9%NACL 1000ML 1,000 ML IV ONE (02:16)
[2022-07-08] MEDS ORDERED: LORAZEPAM 2 MG/ML 1 ML VIAL IVP ONE (02:30)
[2022-07-08 05:30] VITALS: BP 118/94
[2022-07-08] MEDS ORDERED: OSEL75 PO (05:42)
== END 2022-07-08 06:03 | disposition home or self-care (01) ==
LOC: EDH 23:35
DX: J10.1 Influenza due to other identified influenza virus with other respiratory manifestations (principal); Z20.822 Contact with and (suspected) exposure to COVID-19; F41.9 Anxiety disorder, unspecified; I10 Essential (primary) hypertension; E86.0 Dehydration
CPT/HCPCS: 99285; 82550; 84484; 80053; 85025; 85610; 85730; 87040 ×2; 87880; 87804 ×2; 83605; 36415; 87635; 71045; 93005; 96374; 96361; 96375; 94640; C9803; J2930; J7030; J2060

== ENCOUNTER 2023-04-13 00:11 | Emergency (ER) | payer MEDICARE ==
[~2023-04-13] VITALS: Ht 152.4 cm; Wt 65.8 kg
[~2023-04-13 00:11] MED LIST changes: +OSEL75 PO
[2023-04-13 00:13] VITALS: BP 159/83; PULSE 89; RESP 18
[2023-04-13] MEDS ORDERED: PERM60CR19 TP (01:22)
[2023-04-13] MEDS ORDERED: HYD25 PO (01:22)
[2023-04-13] MEDS ORDERED: HYDROXYZINE 50MG VIAL 50 MG/ML VIAL IM SCH (01:30)
== END 2023-04-13 01:37 | disposition home or self-care (01) ==
LOC: EDH 00:11
DX: B86 Scabies (principal); L29.9 Pruritus, unspecified; F41.9 Anxiety disorder, unspecified; F32.A Depression, unspecified; E03.9 Hypothyroidism, unspecified; E78.00 Pure hypercholesterolemia, unspecified; I10 Essential (primary) hypertension; Z79.890 Hormone replacement therapy; Z79.899 Other long term (current) drug therapy
CPT/HCPCS: 99283; J3410

== ENCOUNTER 2023-12-21 09:36 | Emergency (ER) | payer OTHER, MEDICARE ==
[~2023-12-21] VITALS: Ht 152.4 cm; Wt 68.0 kg
[~2023-12-21 09:36] MED LIST changes: +HYD25 PO; +PERM60CR19 TP
[2023-12-21] MEDS ORDERED: METH4TAB3 PO (10:36)
[2023-12-21 10:45] VITALS: BP 155/91; PULSE 89; RESP 18; O2SAT 99
[2023-12-21] MEDS: DEXAMETHASONE SOD PHOSPHATE 4 MG/ML 1ML VIAL IM ONE (10:52)
[2023-12-21] MEDS: HYDROCODONE/ACETAMINOPHEN 5/325 MG TAB PO ONE (10:53)
== END 2023-12-21 11:08 | disposition home or self-care (01) ==
LOC: EDH 09:36
DX: M19.90 Unspecified osteoarthritis, unspecified site (principal); M06.9 Rheumatoid arthritis, unspecified
CPT/HCPCS: 99283; 96372; J1100

== ENCOUNTER 2024-09-13 20:15 | Emergency (ER) | payer MEDICARE ==
[~2024-09-13] VITALS: Ht 152.4 cm; Wt 70.3 kg
[~2024-09-13 20:15] MED LIST changes: +METH4TAB3 PO
--- NOTE | 2024-09-13 20:30 | ERN ---
ED Note History of Present Illness Stated Complaint: CHEST PAIN X 2 WEEKS Chief Complaint: Chest Pain Time Seen by MD: 20:21 Dictation: Patient is a 64-year-old female coming in with epigastric pain that is substernal and burning in nature she has had for two weeks. She denies history of nausea vomiting no jaw pain no back pain no arm pain no neck pain. States she saw her doctor at [facility] and just fill the medications for the treatment for her abdominal pain Allergies: Coded Allergies: shrimp (Unverified Allergy, Unknown, 05/16/19) Home Meds Active Scripts Methylprednisolone (Medrol) 4 Mg Tab.ds.pk, 4 MG PO AD, #1 UNIT Prov:MINO QIU CONTROL PANEL OPERATOR 12/21/23 Hydroxyzine HCl (Atarax) 25 Mg Tab, 25 MG PO TIDP PRN for itching, #30 TAB Prov:PEPITO BULL MD 04/13/23 Permethrin (Elimite) 60 Gm Cream..g., 60 GM TP ONCE, #1 TUBE Prov:PEPITO BULL MD 04/13/23 Oseltamivir Phosphate (Tamiflu) 75 Mg Cap, 75 MG PO BID for 5 Days, #10 CAP Prov:STEPHANIE BARRIENTOS MD 07/08/22 Hydrocodone/Acetaminophen (Hydrocodon-Acetaminophen 5-325) 1 Each Tablet, 1-2 EACH PO Q6HPRN PRN for ACUTE POST-OP PAIN (G89.18), #56 TAB 0 Refills Prov:JEANNE CARIAS MD 10/30/21 Cephalexin Monohydrate (Keflex) 500 Mg Cap, 500 MG PO Q8H for 2 Days, #7 CAP 0 Refills Prov:JEANNE CARIAS MD 10/30/21 Reported Medications Zinc Sulfate (Zinc) 50 Mg Tablet, 50 MG PO DAILY, TAB 10/29/21 Bronx-3 Fatty Acids/Fish Oil (Bronx 3 1,000 mg Softgel) 1 Each Capsule, 1 EACH PO BID, CAP 10/29/21 Lisinopril (Lisinopril) 10 Mg Tablet, 10 MG PO DAILY, TAB 03/09/21 Levothyroxine Sodium (Synthroid) 112 Mcg Tablet, 112 MCG PO DAILY, TAB 03/09/21 Clonazepam (Clonazepam) 1 Mg Tablet, 1 MG PO TIDP, TAB 03/09/21 Atorvastatin Calcium (Atorvastatin Calcium) 40 Mg Tablet, 40 MG PO HS, TAB 03/09/21 Amlodipine Besylate (Amlodipine Besylate) 10 Mg Tablet, 10 MG PO DAILY, TAB 03/09/21 Ascorbic Acid (Vitamin C) 500 Mg Capsule, 500 MG PO AM, CAP 05/24/20 Past Medical History Past Medical History: Anxiety, Depression, High Cholesterol, Hypertension, Hypothyroid Surgical History: Other Surgical History Other: RT AND LT KNEE REPLACEMENTS Family History: Negative Social History: Negative, Lives with family, Other History: Not Applicable RN Note Reviewed/Agreed w/PFSH: Yes Review of System Dictation CONSTITUTIONAL: Negative except for HPI HEAD/FACE: Negative except for HPI EENT: Negative except for HPI RESPIRATORY: Negative except for HPI GASTROINTESTINAL/ABDOMINAL: Negative except for HPI epigastric pain GENITOURINARY: Negative except for HPI MUSCULOSKELETAL: Negative except for HPI INTEGUMENTARY: Negative except for HPI NEUROLOGICAL/PSYCH: Negative except for HPI HEMATOLOGIC/LYMPHATIC: Negative except for HPI All Systems Negative, Except as noted above. 13 point review of systems assessed and all negative except for above. Initial Vital Sign VS Vital Signs Date Time Temp Pulse Resp B/P (MAP) Pulse Ox O2 Delivery O2 Flow Rate FiO2 09/13/24 20:16 98.1 70 16 144/66 100 Room Air 0 09/13/24 20:36 21 Physical Exam Dictation Vital Signs reviewed General Appearance: Alert, oriented x 3, moderate acute distress, well developed, nourished. Head and Face: non-traumatic. Eyes: PERRL, pink conjunctivas, eyelid no trauma, anterior chamber with arcus senilis. Ears: Pinnas intact and no signs of trauma or erythema ear canals clear and no discharge TM no erythema Nose: No discharge, no bleeding. Oropharynx: Mouth normal, tongue pink, pharynx clear,no erythema, tonsils no exudates, no abscesses noted, mucous membrane moist Neck: Supple, non-tender, no thyromegaly, no masses, no JVD, no bruits Breast:Deferred Chest:No tenderness, no crepitus, no paradoxical movement, no retractions Lungs:Clear, well-ventilated, symmetric, no rales, no wheezing, no rhonchi, no stridor, good breath sounds bilaterally Heart: Regular rate, regular rhythm, no murmur, no gallops Vascular: no peripheral edema, Abdomen: Soft, positive bowel sounds, nondistended, no guarding, Epigastric pain with palpation, no rebound, no masses no hepatomegaly, no splenomegaly, no Collins's sign, no hernias. Rectal: Deferred Genital: Deferred Neurological: Normal speech, motor function intact, sensory function intact Musculoskeletal: Neck nontender, full range of motion, back nontender, full range of motion, Extremities: nontender, full range of motion Skin: Color pink, dry, no turgor, no rash, no lacerations, no abrasions, no contusions. Lymphatic: Deferred Results (Laboratory/Radiology) Laboratory/Radiology Laboratory Tests Test 09/13/24 20:25 White Blood Count 12.2 K/uL (4.8-10.8) H Red Blood Count 3.90 MIL/uL (4.00-5.50) L Hemoglobin 12.0 g/dL (12.0-16.0) Hematocrit 35.6 % (36-48) L Mean Corpuscular Volume 91.3 fL (79-99) Mean Corpuscular Hemoglobin 30.8 pg (27.0-33.0) Mean Corpuscular Hemoglobin Concent 33.7 g/dL (32.0-36.0) Red Cell Distribution Width 15.1 % (11.0-15.5) Platelet Count 343 K/uL (130-400) Mean Platelet Volume 9.4 fL (7.5-10.5) Immature Granulocyte % (Auto) 0.3 % (0-1) Neutrophils (%) (Auto) 68.7 % (40.0-77.0) Lymphocytes (%) (Auto) 22.6 % (21.0-51.0) Monocytes (%) (Auto) 7.8 % (3.0-13.0) Eosinophils (%) (Auto) 0.4 % (0.0-8.0) Basophils (%) (Auto) 0.2 % (0.0-5.0) Neutrophils # (Auto) 8.4 K/uL (1.8-7.7) H Lymphocytes # (Auto) 2.8 K/uL (1.0-4.8) Monocytes # (Auto) 1.0 K/uL (0.1-1.0) Eosinophils # (Auto) 0.05 K/uL (0.00-0.70) Basophils # (Auto) 0.02 K/uL (0.00-0.20) Absolute Immature Granulocyte (auto 0.04 K/uL (0-1) Nucleated Red Blood Cells 0.0 % (0.0-0.19) Sodium Level 141 mmol/L (136-145) Potassium Level 3.4 mmol/L (3.5-5.1) L Chloride Level 106 mmol/L (101-111) Carbon Dioxide Level 28 mmol/L (21-32) Blood Urea Nitrogen 18 mg/dL (7-18) Creatinine 0.6 mg/dL (0.5-1.0) Glomerular Filtration Rate Calc 100 mL/min (>90) Random Glucose 141 mg/dL (70-105) H Total Calcium 8.9 mg/dL (8.5-10.1) Troponin I High Sensitivity 6 ng/L (4-50) Lipase 46 U/L (16-77) am Type: CHEST 1VW Clinical Information: Chest pain Comparison: None Findings: The lungs are clear of infiltrates. The heart is normal in size. The bony and soft tissue structures of the chest are unremarkable. Impression: Clear lungs. Labs Reviewed?: Yes EKG Comment: EKG NORMAL SINUS RHYTHM/HEART RATE 67/AXIS NORMAL/NO ECTOPY ED Course ED Course Orders Procedure Category Date Status Time Cbc With Differential LAB 09/13/24 Complete 20:27 Troponin I High LAB 09/13/24 Complete Sensitivity 20:27 12 Lead Ekg Tracing- EKG 09/13/24 Logged Technical 20:27 0.9%Nacl 1000ml (Ns PHA 09/13/24 Complete 1000ml) 20:30 Morphine 2mg Syg PHA 09/13/24 Complete (Morphine 2mg Syg) 20:30 Ondansetron 4mg Inj PHA 09/13/24 Complete (Zofran 4mg Inj) 20:30 Famotidine 20mg Vial PHA 09/13/24 Complete (Pepcid 20mg Vial) 20:30 Chest 1vw RAD 09/13/24 Resulted 20:27 Lipase LAB 09/13/24 Complete 20:27 Basic Metabolic Panel LAB 09/13/24 Complete 20:27 Lidocaine Hcl 2% PHA 09/13/24 Complete Viscous (Lidocaine Hcl 21:00 Mag/Alum/Simeth 30ml PHA 09/13/24 Complete (Maalox Plus 30ml) 21:00 Dicyclomine Hcl PHA 09/13/24 Complete (Bentyl 10mg/5ml 21:00 Current Medications Medications (Trade) Dose Ordered Sig/William Route PRN Reason Start Time Stop Time Status Last Admin Dose Admin Al Hydroxide/Mg Hydroxide (MAALox PLUS 30ML) 30 ml ONCE ONCE PO 09/13/24 21:00 09/13/24 21:01 DC 09/13/24 21:24 Dicyclomine HCl (Bentyl 10mg/5ml Syrup) 10 mg ONCE ONCE PO 09/13/24 21:00 09/13/24 21:01 DC 09/13/24 21:23 Famotidine (Pepcid 20mg Vial) 20 mg ONCE ONCE IV 09/13/24 20:30 09/13/24 20:31 DC 09/13/24 20:44 Lidocaine HCl (Lidocaine HCl 2% Viscous) 10 ml ONCE ONCE PO 09/13/24 21:00 09/13/24 21:01 DC 09/13/24 21:24 Morphine Sulfate (morPHINE 2MG SYG) 2 mg ONCE ONCE IVP 09/13/24 20:30 09/13/24 20:31 DC 09/13/24 20:40 Ondansetron HCl (zoFRAN 4MG INJ) 4 mg ONCE ONCE IVP 09/13/24 20:30 09/13/24 20:31 DC 09/13/24 20:40 Sodium Chloride 1,000 ml @ 0 mls/hr ONCE ONCE IV 09/13/24 20:30 09/13/24 20:31 DC 09/13/24 20:40 Vital Signs Date Time Temp Pulse Resp B/P (MAP) Pulse Ox O2 Delivery O2 Flow Rate FiO2 09/13/24 21:46 97.9 62 18 152/68 99 Room Air* 0 21 09/13/24 20:36 98.1 64 18 147/75 98 Room Air* 0 21 09/13/24 20:16 98.1 70 16 144/66 100 Room Air 0 2240 pain resolved with IV fluids/Pepcid and GI cocktail. HEART Score Response (Comments) Value History: Moderate suspicion (+1) 1 Age: 45-65yrs (+1) 1 Risk Factors: 1-2 risk factors (+1) 1 Total 3 Medical Decision Making MDM MDM: Differential diagnosis: ACS/AMI/gastritis/pancreatitis/gastroenteritis/GERD/electrolyte imbalance/dehydration/pneumonia/bronchitis Rationale: Tests considered and ordered secondary to shared decision making include: Radiology/labs/EKG Previous outside records reviewed: Old ER visits. Reviewed Risk of complication and/or morbidity or mortality of patient management: None Medications-Per medication reconciliation Need for hospitalization: Patient does not meet criteria for hospitalization. No Need for emergency major/minor surgery: No There are no social concerns with this patient. Prescription drug management Carafate/omeprazole Prescriptions will include symptomatic care Patient's prior external medical records from other ER visits were reviewed by me as indicated. Prior testing and results from previous visits were reviewed. Prior tests were taken into account with medical decision making and resource utilization, independent historian/historians were used to obtain complete me dical history. I independently interpreted the test that were performed, results were reviewed by me and considered findings on radiology if ordered. Medical management and examination interpretation discussions were had by me with other qualified healthcare professionals as indicated for the patient's care. DX & DISP Disposition: Discharge Departure Impression: Primary Impression: Acute gastritis Additional Impression: Hypokalemia Condition: Stable Scripts Omeprazole (Omeprazole) 40 Mg Capsule.dr 1 CAP PO DAILY for 30 Days, #30 CAP 0 Refills Prov: MINO QIU CONTROL PANEL OPERATOR 09/13/24 Sucralfate (Carafate) 1 Gram Tablet 1 TAB PO QID for 10 Days, #40 TAB 0 Refills Prov: MINO QIU CONTROL PANEL OPERATOR 09/13/24 Additional Instructions: Follow-up with primary care provider in 1 to 2 days. Take medications as directed here in the emergency room. Okay to continue home medications unless otherwise discussed during your visit in the emergency room today. Return to your nearest emergency room if symptoms worsen or if there is no improvement. Call 911 if you need immediate assistance. Take Tylenol or Motrin [id number]-[id number]-[id number] as needed and if no contraindications are present. Increase oral hydration. A wound culture or urine culture was ordered here in the emergency room department please follow-up with primary care provider and advise them to get repeat ports from our facility. If you had any Juvencio wrap/splints that were applied here, please do not remove them until you see your primary care or specialty. Follow a bland diet with water for fluids only. No coffee, no ice tea, no soda pop, no spicy foods, no alcohol, no tobacco until cleared by your primary care doctor Referrals: JB PINEDA MD (PCP) Time of Disposition: 22:40 I have reviewed the case, and I agree with, Diagnosis and Plan MINO QIU NP Sep 13, 2024 20:30
--- NOTE | 2024-09-13 20:37 | NUR ---
per stec ems pt received 2 nitros and 325mg aspirin
[2024-09-13 20:38] LABS: BASOPHILS # (AUTO) 0.02 K/uL (0.00-0.20); BASOPHILS % (AUTO) 0.2 % (0.0-5.0); EOSINOPHILS # (AUTO) 0.05 K/uL (0.00-0.70); EOSINOPHILS % (AUTO) 0.4 % (0.0-8.0); HEMATOCRIT 35.6 % (36-48); IMMATURE GRANULOCYTE ABSOLUTE 0.04 K/uL (0-1); LYMPHOCYTES # (AUTO) 2.8 K/uL (1.0-4.8); LYMPHOCYTES % (AUTO) 22.6 % (21.0-51.0); MEAN CORPUSCULAR HEMOGLOBIN 30.8 pg (27.0-33.0); MEAN CORPUSCULAR HGB CONC 33.7 g/dL (32.0-36.0); MEAN CORPUSCULAR VOLUME 91.3 fL (79-99); MONOCYTES % (AUTO) 7.8 % (3.0-13.0); NEUTROPHILS # (AUTO) 8.4 K/uL (1.8-7.7); NEUTROPHILS % (AUTO) 68.7 % (40.0-77.0); PLATELET COUNT (AUTO) 343 K/uL (130-400); RED CELL DISTRIBUTION WIDTH 15.1 % (11.0-15.5); WHITE BLOOD COUNT (AUTO) 12.2 K/uL (4.8-10.8)
[2024-09-13] MEDS: 0.9%NACL 1000ML 1,000 ML IV ONE (20:40)
[2024-09-13] MEDS: ondanSETRON 4MG INJ IVP ONE (20:40)
[2024-09-13] MEDS: morPHINE 2 MG SYG IVP ONE (20:40)
[2024-09-13] MEDS: FAMOTIDINE 20MG VIAL IV ONE (20:44)
--- NOTE | 2024-09-13 21:11 | HMCIMG ---
Exam Type: CHEST 1VW Clinical Information: Chest pain Comparison: None Findings: The lungs are clear of infiltrates. The heart is normal in size. The bony and soft tissue structures of the chest are unremarkable. Impression: Clear lungs.
[2024-09-13 21:12] LABS: CREATININE 0.6 mg/dL (0.5-1.0); POTASSIUM 3.4 mmol/L (3.5-5.1)
[2024-09-13] MEDS: DICYCLOMINE HCL 10 MG/5 ML ML PO ONE (21:23)
[2024-09-13] MEDS: MAG/ALUM/SIMETH 30 ML UDCUP PO ONE (21:24)
[2024-09-13] MEDS: LIDOCAINE HCL 2% VISCOUS 15 ML UDCUP PO ONE (21:24)
[2024-09-13] MEDS ORDERED: OMEP40CA21 PO (22:41)
[2024-09-13] MEDS ORDERED: SUCR1TAB28 PO (22:41)
[2024-09-13 22:46] VITALS: BP 148/66; PULSE 66; RESP 18; TEMP 97.9; O2SAT 99
--- NOTE | 2024-09-14 08:48 | EKG ---
[facility] Test Date: 2024-09-13 Test Time: 20:32:09 Pat Name: LUIS LÓPEZ Department: ED Room: Gender: F Salt Maker: [id number] : [id number] Requested By: MINO QIU Order Number: [id number] Reading MD: Nato Guerin Measurements Intervals Roberts Rate: 67 P: 38 WY: 162 QRS: 27 QRSD: 90 T: 43 QT: 435 QTc: 460 Interpretive Statements Sinus rhythm Compared to ECG 07/08/2022 00:01:45 Sinus tachycardia no longer present Myocardial infarct finding no longer present Electronically Signed On 09-14-2024 20:16:52 TRAFFIC I MANAGER by Nato Guerin Please click the below link to view image of tracing.
== END 2024-09-13 22:49 | disposition home or self-care (01) ==
LOC: EDH 20:15
DX: K29.00 Acute gastritis without bleeding (principal); E87.6 Hypokalemia; E03.9 Hypothyroidism, unspecified; E78.00 Pure hypercholesterolemia, unspecified; F41.9 Anxiety disorder, unspecified; I10 Essential (primary) hypertension; Z79.890 Hormone replacement therapy; Z79.899 Other long term (current) drug therapy; Z96.659 Presence of unspecified artificial knee joint
CPT/HCPCS: 99285; 96374; 96375; 71045; 96361; 84484; 80048; 83690; 85025; 36415; 93005; J3490; J2270; J7030; J2405

== ENCOUNTER 2025-06-14 11:08 | Emergency (ER) | payer MEDICARE, OTHER ==
[~2025-06-14] VITALS: Ht 152.4 cm; Wt 69.4 kg
[~2025-06-14 11:08] MED LIST changes: -KETO10TA2 PO; -METH-662 PO
--- NOTE | 2025-06-14 11:41 | ERN ---
General Chief Complaint: Back Pain or Injury Stated Complaint: BACK PAIN/ LEFT LEG PAIN Time Seen by MD: 11:09 Time Seen by Midlevel: 11:09 Source: patient History of Present Illness Initial Comments Patient is a 64-year-old female presenting to the emergency department with low back pain following a mechanical ground level fall the stairs. Patient states he has 14 steps up when she lost her balance fell backwards. She does not remember hitting her head but does report a headache. The majority of her pain is focused on her lower back and knee. Denies being on any blood thinners Allergies: Coded Allergies: shrimp (Unverified Allergy, Unknown, 05/16/19) Home Meds Active Scripts Methocarbamol (Robaxin) 750 Mg Tab, 1 TAB PO BID for 10 Days, #20 TAB 0 Refills Prov:BUSTER DON 06/14/25 Ketorolac Tromethamine (Ketorolac Tromethamine) 10 Mg Tablet, 1 TAB PO BID for pain for 5 Days, #10 TAB 0 Refills Prov:BUSTER DON 06/14/25 Prednisone (Prednisone) 20 Mg Tablet, 40 MG PO DAILY for 5 Days, #5 TAB 0 Refills Prov:JOS VILLALOBOS MD 01/11/25 Pantoprazole Sodium (Protonix) 40 Mg Ectab, 1 TAB PO DAILY PRN for GI UPSE T/UPSET STOMACH for 30 Days, #30 TAB 0 Refills Prov:JOS VILLALOBOS MD 01/11/25 Reported Medications Hydrocodone/Acetaminophen (Hydrocodon-Acetaminophn 10-325) 10 Mg-325 Mg Tablet, 1 TAB PO Q6HPRN PRN for pain for 5 Days, #10 TAB 0 Refills 12/13/24 Multivitamin (Multi Vitamin Daily) 1 Each Tablet, 1 EACH PO DAILY, TAB 12/13/24 Tabitha Otto/Linoleic/Gamoleni (Evening Otto 1,000 mg Sftg) 1,000 Mg Capsule, 1000 MG PO DAILY, CAP 12/13/24 Levothyroxine Sodium (Synthroid) 100 Mcg Tablet, 100 MCG PO DAILY, TAB 12/13/24 Furosemide (Furosemide) 20 Mg Tablet, 20 MG PO DAILY, TAB 12/13/24 Clonazepam (Clonazepam) 1 Mg Tablet, 1 TAB PO TID for 30 Days, #90 TAB 0 Refills 12/13/24 Bupropion HCl (Bupropion HCl Sr) 200 Mg Tablet.er, 1 TAB PO AMNOON for 30 Days, #30 TAB 0 Refills 12/13/24 Mirtazapine (Mirtazapine) 15 Mg Tab.rapdis, 2 TAB PO HS for 30 Days, #30 TAB 0 Refills 12/13/24 Berg[place]-3 Acid Ethyl Esters (Lovaza) 1 Gram Capsule, 2 CAP PO BID for 30 Days, #120 CAP 0 Refills 12/13/24 Atorvastatin Calcium (Atorvastatin Calcium) 40 Mg Tablet, 40 MG PO HS, TAB 03/09/21 Amlodipine Besylate (Amlodipine Besylate) 10 Mg Tablet, 10 MG PO DAILY, TAB 03/09/21 Past Medical History Past Medical History: High Cholesterol, Hypertension, Hypothyroid Past Surgical History: Other Surgical History Other: BREAST BX, BLI KNEE SX, Family History Family History: Negative Social History Social History: Negative, Lives with family, Other Female( History) History: Not Applicable ROS Dictation CONSTITUTIONAL: Negative except for HPI HEAD/FACE: Negative except for HPI EENT: Negative except for HPI RESPIRATORY: Negative except for HPI GASTROINTESTINAL/ABDOMINAL: Negative except for HPI GENITOURINARY: Negative except for HPI MUSCULOSKELETAL: Negative except for HPI INTEGUMENTARY: Negative except for HPI NEUROLOGICAL/PSYCH: Negative except for HPI HEMATOLOGIC/LYMPHATIC: Negative except for HPI All Systems Negative, Except as noted above. 13 point review of systems assessed and all negative except for above. Physical Exam Physical Exam Dictation Vital Signs reviewed General Appearance: Alert, oriented x 3, no acute distress, well developed, nourished. Head and Face: non-traumatic. Eyes: PERRL, pink conjunctivas, eyelid no trauma, anterior chamber with arcus senilis. Ears: Pinnas intact and no signs of trauma or erythema ear canals clear and no discharge TM no erythema Nose: No discharge, no bleeding. Oropharynx: Mouth normal, tongue pink, pharynx clear,no erythema, tonsils no exudates, no abscesses noted, mucous membrane moist Neck: Supple, non-tender, no thyromegaly, no masses, no JVD, no bruits Breast:Deferred Chest:No tenderness, no crepitus, no paradoxical movement, no retractions Lungs:Clear, well-ventilated, symmetric, no rales, no wheezing, no rhonchi, no stridor, good breath sounds bilaterally Heart: Regular rate, regular rhythm, no murmur, no gallops Vascular: no peripheral edema, Abdomen: Soft, positive bowel sounds, nondistended, no guarding, nontender, no rebound, no masses no hepatomegaly, no splenomegaly, no Collins's sign, no hernias. Rectal: Deferred Genital: Deferred Neurological: Normal speech, motor function intact, sensory function intact Musculoskeletal: Neck nontender, full range of motion, back nontender, full range of motion, Extremities: nontender, full range of motion Skin: Color pink, dry, no turgor, no rash, no lacerations, no abrasions, no contusions. Lymphatic: Deferred Results Laboratory and Microbiology Lab and Micro Result Laboratory Tests Test 06/14/25 14:58 White Blood Count 14.2 K/uL (4.8-10.8) H Red Blood Count 4.15 MIL/uL (4.00-5.50) Hemoglobin 12.7 g/dL (12.0-16.0) Hematocrit 38.2 % (36-48) Mean Corpuscular Volume 92.0 fL (79-99) Mean Corpuscular Hemoglobin 30.6 pg (27.0-33.0) Mean Corpuscular Hemoglobin Concent 33.2 g/dL (32.0-36.0) Red Cell Distribution Width 14.8 % (11.0-15.5) Platelet Count 348 K/uL (130-400) Mean Platelet Volume 9.4 fL (7.5-10.5) Immature Granulocyte % (Auto) 0.4 % (0-1) Neutrophils (%) (Auto) 71.5 % (40.0-77.0) Lymphocytes (%) (Auto) 19.8 % (21.0-51.0) L Monocytes (%) (Auto) 7.7 % (3.0-13.0) Eosinophils (%) (Auto) 0.5 % (0.0-8.0) Basophils (%) (Auto) 0.1 % (0.0-5.0) Neutrophils # (Auto) 10.2 K/uL (1.8-7.7) H Lymphocytes # (Auto) 2.8 K/uL (1.0-4.8) Monocytes # (Auto) 1.1 K/uL (0.1-1.0) H Eosinophils # (Auto) 0.07 K/uL (0.00-0.70) Basophils # (Auto) 0.02 K/uL (0.00-0.20) Absolute Immature Granulocyte (auto 0.06 K/uL (0-1) Nucleated Red Blood Cells 0.0 % (0.0-0.19) Sodium Level 142 mmol/L (136-145) Potassium Level 3.1 mmol/L (3.5-5.1) L Chloride Level 104 mmol/L (101-111) Carbon Dioxide Level 30 mmol/L (21-32) Blood Urea Nitrogen 12 mg/dL (7-18) Creatinine 0.5 mg/dL (0.5-1.0) Glomerular Filtration Rate Calc 105 mL/min (>90) Random Glucose 100 mg/dL (70-105) Total Calcium 8.7 mg/dL (8.5-10.1) Total Bilirubin 0.4 mg/dL (0.2-1.0) Aspartate Amino Transf (AST/SGOT) 16 U/L (10-37) Alanine Aminotransferase (ALT/SGPT) 30 U/L (12-78) Alkaline Phosphatase 110 U/L (50-136) Troponin I High Sensitivity 5 ng/L (4-50) Total Protein 7.0 g/dL (6.0-8.3) Albumin 3.3 g/dL (3.5-5.0) L MDM MDM: Differential diagnosis: Fracture, contusion, dislocation There are no social concerns with this patient. Prescription drug management Prescriptions will include: None Medical management and examination interpretation discussions were had by me with other qualified healthcare professionals as indicated for the patient's care. ED Course Orders Procedure Category Date Status Time Morphine 2mg Syg PHA 06/14/25 Complete (Morphine 2mg Syg) 11:30 Ct Head/Brain W/O CT 06/14/25 Resulted Contrast 11:23 Ct Cervical Spine W/O CT 06/14/25 Resulted Contrast 11:23 Ct Thoracic Spine W/O CT 06/14/25 Resulted Contrast 11:23 Ct Lumbar Spine W/O CT 06/14/25 Resulted Contrast 11:23 Knee 3vws Lt RAD 06/14/25 Resulted 11:40 12 Lead Ekg Tracing- EKG 06/14/25 Complete Technical 14:43 Troponin I High LAB 06/14/25 Complete Sensitivity 14:43 Cbc With Differential LAB 06/14/25 Complete 14:54 Comprehensive LAB 06/14/25 Complete Metabolic Panel 14:54 Ondansetron 4mg Inj PHA 06/14/25 Complete (Zofran 4mg Inj) 15:00 Potassium Bicarb/Cit PHA 06/14/25 Logged Ac 25meq (K-Lyte Ta 16:00 Current Medications Medications (Trade) Dose Ordered Sig/William Route PRN Reason Start Time Stop Time Status Last Admin Dose Admin Morphine Sulfate (morPHINE 2MG SYG) 2 mg ONCE ONCE IM 06/14/25 11:30 06/14/25 11:31 DC 06/14/25 12:04 Ondansetron HCl (zoFRAN 4MG INJ) 4 mg ONCE ONCE IVP 06/14/25 15:00 06/14/25 15:01 DC 06/14/25 15:30 Vital Signs Date Time Temp Pulse Resp B/P (MAP) Pulse Ox O2 Delivery O2 Flow Rate FiO2 06/14/25 15:11 96.8 86 14 156/77 98 Room Air* 0 06/14/25 14:42 96.8 76 16 170/83 99 Room Air* 0 06/14/25 12:32 98.1 72 16 174/74 96 Room Air* 0 06/14/25 11:34 98.1 83 16 182/85 99 Room Air* 0 06/14/25 11:09 98.6 76 18 181/92 98 Room Air 0 DX & DISP Disposition: Discharge Departure Impression: Primary Impression: Fall Additional Impressions: Lumbar strain, Strain of left knee, Hypokalemia Condition: Stable Scripts Methocarbamol (Robaxin) 750 Mg Tab 1 TAB PO BID for 10 Days, #20 TAB 0 Refills Prov: BUSTRE DON 06/14/25 Ketorolac Tromethamine (Ketorolac Tromethamine) 10 Mg Tablet 1 TAB PO BID for pain for 5 Days, #10 TAB 0 Refills Prov: BUSTER DON 06/14/25 Additional Instructions: Your CT scan of the head, neck, and spine do not show any evidence of an acute fracture or dislocation. Your left knee x-ray does not show any evidence of a fracture. I have given you a prescription for pain medication and muscle relaxers. Follow up with your primary care doctor in two three days for repeat evaluation. You may be sore over the next couple of days. Referrals: JB PINEDA MD (PCP) I have reviewed the case, and I agree with, Diagnosis and Plan I performed the substantive portion of the visit. I have reviewed and personally made and approve the management plan that is documented in the note by myself or the SHEA. I acknowledge for responsibility for the patient's management plan. BUSTER DON Jun 14, 2025 11:41
--- NOTE | 2025-06-14 13:11 | HMCIMG ---
EXAM: CT Lumbar Spine Without IV contrast. CLINICAL HISTORY: fall from stairs TECHNIQUE: Axial computed tomography images of the lumbar spine without intravenous contrast. Sagittal and coronal reformatted images were generated. COMPARISON: None provided. FINDINGS: ALIGNMENT: Bony alignment is anatomic. DISCS/DEGENERATIVE CHANGES: Mild multilevel degenerative changes in the form of marginal osteophytes. Vacuum phenomenon at the L5-S1 level. No significant degenerative disease. BONES: No acute fracture or aggressive appearing osseous lesion. Well-defined lytic lesion in the right iliac bone measuring 15 x 8 mm SOFT TISSUES: The soft tissues are unremarkable. Sigmoid colon diverticulosis with no features of acute diverticulitis. IMPRESSION: 1. No acute osseous injury. 2. Well-defined lytic lesion in the right iliac bone measuring 15 x 8 mm. This is presumed to reflect a benign process; however may be further characterized with bone scan or contrast-enhanced MR imaging on a nonemergent basis. /[place]
--- NOTE | 2025-06-14 13:14 | HMCIMG ---
EXAM: CT Cervical Spine Without IV contrast. CLINICAL HISTORY: fall from stairs TECHNIQUE: Axial computed tomography images of the cervical spine without intravenous contrast. Sagittal and coronal reformatted images were generated. COMPARISON: Compared with the previous CT dated 10/07/20 FINDINGS: ALIGNMENT: Bony alignment is anatomic. DEGENERATIVE CHANGES: Stable mild degenerative changes in the form of marginal osteophytes. New onset of endplate sclerosis and decreased disc height at C6-C7 level. No significant canal stenosis or neural foraminal narrowing is evident. SOFT TISSUES: The prevertebral soft tissues are within normal limits. Incidental calcification within the right thyroid lobe, unchanged from the prior examination. BONES: No acute fracture or aggressive appearing osseous lesion. Mild ground glass opacities at the lung apices may reflect an infectious and/or inflammatory process, clinical correlation is advised. IMPRESSION: 1. No acute cervical spine fracture or dislocation. 2. Mild ground glass opacities at lung apices, may reflect infectious or inflammatory process. Clinical correlation is advised. /[place]
--- NOTE | 2025-06-14 13:15 | HMCIMG ---
EXAM: CT Head Without IV contrast. CLINICAL HISTORY: fall from stairs TECHNIQUE: Axial computed tomography images of the head/brain without intravenous contrast. COMPARISON: Compared with the previous CT dated 03/09/21 FINDINGS: BRAIN: Stable mild age-related neuroparenchymal atrophy. No evidence of acute hemorrhage. No mass lesion. No CT evidence for acute territorial infarct. No midline shift or extra-axial collections. VENTRICLES: No hydrocephalus. ORBITS: The orbits are unremarkable. SINUSES AND MASTOIDS: The paranasal sinuses and mastoid air cells are clear. BONES: No fracture. Stable mild hyperostosis frontalis interna. SOFT TISSUES: Unremarkable. IMPRESSION: 1. No acute intracranial findings. /[place]
--- NOTE | 2025-06-14 13:15 | HMCIMG ---
EXAM: CT Thoracic Spine Without IV contrast. CLINICAL HISTORY: fall from stairs TECHNIQUE: Axial computed tomography images of the thoracic spine without intravenous contrast. Sagittal and coronal reformatted images were generated. CONTRAST: None. COMPARISON: None provided. FINDINGS: BONES: No acute fracture or aggressively appearing osseous lesion. ALIGNMENT: Bony alignment is anatomic. DEGENERATIVE CHANGES: Multilevel degenerative changes in the form of marginal osteophyte and disc osteophyte complexes. No significant central canal or neural foraminal stenosis. SOFT TISSUES: The soft tissues are unremarkable. IMPRESSION: 1. No acute osseous injury. /[place]
--- NOTE | 2025-06-14 13:27 | HMCIMG ---
KNEE 3VWS LT REASON: fall from stairs r/o fx TECHNIQUE: 3 views were obtained. COMPARISON: Prior study from 08/17/2021 is available. FINDINGS: There is left knee arthroplasty which appears to be evidence satisfactory position. There is no evidence of fracture or dislocation. There is no joint effusion. The soft tissues appear unremarkable. There is no evidence of a radiopaque foreign body. The study is unchanged from prior study. IMPRESSION: No acute findings. Status post left knee arthroplasty which appears to be anatomical position.
[2025-06-14] MEDS ORDERED: METH-662 PO (13:44)
[2025-06-14] MEDS ORDERED: KETO10TA2 PO (13:44)
--- NOTE | 2025-06-14 14:55 | EKG ---
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
[2025-06-14 15:06] LABS: IMMATURE GRANULOCYTE ABSOLUTE 0.06 K/uL (0-1); NUCLEATED RED BLOOD CELLS 0.0 % (0.0-0.19); PLATELET COUNT (AUTO) 348 K/uL (130-400); RED BLOOD CELL COUNT(AUTO) 4.15 MIL/uL (4.00-5.50); RED CELL DISTRIBUTION WIDTH 14.8 % (11.0-15.5); WHITE BLOOD COUNT (AUTO) 14.2 K/uL (4.8-10.8)
[2025-06-14 15:23] LABS: ASPARTATE AMINOTRANSFERASE 16.0 U/L (10-37); CREATININE 0.5 mg/dL (0.5-1.0); GLOMERULAR FILTR. RATE CALC 105.0 mL/min (>90); GLUCOSE,RANDOM 100.0 mg/dL (70-105); SODIUM SERUM 142.0 mmol/L (136-145); TOTAL PROTEIN, SERUM 7.0 g/dL (6.0-8.3); UREA NITROGEN, BLOOD 12.0 mg/dL (7-18)
[2025-06-14 16:08] VITALS: BP 149/75; PULSE 85; RESP 14; TEMP 96.8; O2SAT 98
== END 2025-06-14 16:32 | disposition home or self-care (01) ==
LOC: EDH 11:08
DX: S39.012A Strain of muscle, fascia and tendon of lower back, initial encounter (principal); S86.912A Strain of unspecified muscle(s) and tendon(s) at lower leg level, left leg, initial encounter; D48.61 Neoplasm of uncertain behavior of right breast; N65.1 Disproportion of reconstructed breast; N64.89 Other specified disorders of breast; R92.333 Mammographic heterogeneous density, bilateral breasts; E87.6 Hypokalemia; E78.00 Pure hypercholesterolemia, unspecified; E03.9 Hypothyroidism, unspecified; I10 Essential (primary) hypertension; Z91.013 Allergy to seafood; Z79.899 Other long term (current) drug therapy; Z79.890 Hormone replacement therapy; Z79.52 Long term (current) use of systemic steroids; Z96.653 Presence of artificial knee joint, bilateral; W10.9XXA Fall (on) (from) unspecified stairs and steps, initial encounter; Y93.89 Activity, other specified; Y92.89 Other specified places as the place of occurrence of the external cause; Y99.8 Other external cause status
CPT/HCPCS: 99285; 84484; 80053; 85025; 36415; 73562; 77066; 70450; 72125; 72131; 72128; 76641; 96372; 96374; 93005; J2270; J2405

== ENCOUNTER → 2025-06-14 | Outpatient (CLI) | payer MEDICARE, OTHER ==
[~2025-06-14] MED LIST changes: -ASCO500C18 PO; +BUPR200T8 PO; -CEPH500B PO; +EVE1000C3 PO; -FISH1CAP27 PO; +FURO20TA4 PO; -HYD25 PO; -HYDR-4060 PO; +HYDR-4068 PO; +KETO10TA2 PO; +LEVO100T6 PO; -LEVO112T4 PO; -LISI10TA24 PO; +METH-662 PO; -METH4TAB3 PO; +MIRT-72 PO; +MULT-1203 PO; +OMEG1CAP31 PO; -OSEL75 PO; +PANT40TA55 PO; -PERM60CR19 TP; +PRED20TA3 PO; -ZINC220T4 PO
--- NOTE | 2025-06-18 11:30 | HMCIMG ---
Right BREAST ULTRASOUND: Finding: Real-time examination of the right breast demonstrates heterogeneous echotexture throughout both the breasts without evidence of focal solid or cystic masses. There is surgical changes with scarring and there is a fluid collection seen at 9:00 measuring 4.6 x 0.9 cm suggesting a seroma. Patient has had lumpectomy performed on the right breast are 12/18/2024. IMPRESSION: No mass or cyst seen. Right breast near the scar is not o'clock there is a fluid collection collection suggesting of seroma which is amenable for ultrasound-guided aspiration. FINAL ASSESSMENT: ACR: BI-RAD- 2. Benign: Also a negative assessment; finding(s) benign abnormalities. Management: Routine mammography screening. Likelihood of Cancer: Essentially 0% likelihood of malignancy.
--- NOTE | 2025-06-18 11:33 | HMCIMG ---
DIGITAL both breasts DIAGNOSTIC MAMMOGRAM Technique: The digital mammographic examination of bilateral breasts in craniocaudal, mediolateral oblique views along with CAD was obtained. History: This is a 64 years year-old female 5, para2 Ab3 . 10 has history of right breast biopsy on 2024. Patient underwent right breast lumpectomy on 12/18/2024. Patient has a past history of bilateral breast reduction in 2014 and right breast biopsy in 2017. The path report for the lumpectomy is benign finding. Patient has no family history of breast cancer. Patient has no complaint Reference:Prior mammogram from 06/14/2025 is available.. Breast composition: Breast composition C: The breasts are heterogeneously dense, which may obscure small masses. Finding: The digital mammographic examination of both breasts in craniocaudal and mediolateral oblique view along with CAD demonstrates right breast is deformed from prior lumpectomy with postsurgical changes with multiple surgical clips and scarring. Both breasts are moderately heterogeneously dense.. There is a solitary benign macrocalcification seen in both breasts. Ultrasound demonstrate there is a fluid collection seen suggesting of a seroma which is amenable for ultrasound-guided aspiration There is no evidence of any dendritic mass, cluster microcalcification or architectural distortion. The retromammary fat appears to be normal. IMPRESSION: NO RADIOGRAPHIC EVIDENCE OF MALIGNANT CHANGES. WE WOULD RECOMMEND ANNUAL FOLLOW UP WITH TOMOSYNTHESIS UNLESS OTHERWISE CLINICALLY INDICATED. Ultrasound demonstrated there is a seroma which is amenable for ultrasound-guided aspiration FINAL ASSESSMENT: ACR: BI-RAD- 2. Benign: Also a negative assessment; finding(s) benign abnormalities. Management: Routine mammography screening. Likelihood of Cancer: Essentially 0% likelihood of malignancy. NOTE: IF A WORK-UP OF THIS PATIENT LEADS TO A BIOPSY, PLEASE FORWARD A COPY OF THE PATHOLOGY REPORT TO OUR OFFICE REQUIRED BY SA E[employer]ECTIVE JUNE 27, 1994. A NEGATIVE MAMMOGRAM SHOULD NOT PRECLUDE BIOPSY OF A CLINICALLY PALPABLE SUSPICIOUS MASS, 10% OF BREAST CANCERS ARE MAMMOGRAPHICALLY OCCULT. THIS MAMMOGRAPHY FACILITY IS FULLY ACCREDITED BY THE FOOD AND DRUG ADMINISTRATION (FDA). THANK YOU FOR THIS REFERRAL.
== END | disposition home or self-care (01) ==
LOC: RAH 09:11
PROVIDERS: ATTEND Student in an Organized Health Care Education/Training Program
DX: D48.61 Neoplasm of uncertain behavior of right breast (principal); N65.1 Disproportion of reconstructed breast; N64.89 Other specified disorders of breast; R92.333 Mammographic heterogeneous density, bilateral breasts
CPT/HCPCS: 76641; 77066

== ENCOUNTER → 2025-07-17 | Outpatient (CLI) | payer MEDICARE, OTHER ==
[2025-07-17 11:21] LABS: INR 1.0 (0.85-1.15)
--- NOTE | 2025-07-17 12:15 | NUR ---
ULTRASOUND GUIDED ASPIRATION OF RIGHT BREAST FLUID COLLECTION PROCEDURE PERFORMED BY DR. SON MENDOZA. PUNCTURE SITE RIGHT BREAST AT 9 O'CLOCK AND PATIENT TOLERATED PROCEDURE WELL. SPECIMEN X1 COLLECTED AND SENT TO LAB. END OF PROCEDURE AT 1155. NEEDLE REMOVED AND DRESSING APPLIED- NO BLEEDING NOTED. DISCHARGE INSTRUCTIONS GIVEN TO PATIENT AND VERBALIZED UNDERSTANDING. DISCHARGED VIA AMBULATORY- AAO X3 WITH NO C/O PAIN.
--- NOTE | 2025-07-18 10:08 | HMCIMG ---
Right BREAST CYST ASPIRATION INDICATION: Breast seroma COMPARISON: FINDINGS: After informed consent, the right breast was prepped and draped in the usual sterile fashion. Using ultrasound guidance and sterile technique, the small was located. Both superficial and deep anesthetic was given with 1% Lidocaine. An 18-gauge needle was then advanced into the cyst with ultrasound guidance. Less than 1 cc ml of blood-tinged fluid were then withdrawn using a 5 cc syringe. The fluid was sent for cytologic evaluation. The patient tolerated the procedure well. IMPRESSION: Aspiration performed with very small amount of fluid removed.. Please see pending cytology report for analysis of fluid.
== END | disposition home or self-care (01) ==
LOC: RAH 10:15
PROVIDERS: ATTEND Student in an Organized Health Care Education/Training Program
DX: D48.61 Neoplasm of uncertain behavior of right breast (principal); N64.89 Other specified disorders of breast; N64.81 Ptosis of breast; I10 Essential (primary) hypertension; F31.9 Bipolar disorder, unspecified; F41.9 Anxiety disorder, unspecified; E05.90 Thyrotoxicosis, unspecified without thyrotoxic crisis or storm; Z96.653 Presence of artificial knee joint, bilateral; Z88.8 Allergy status to other drugs, medicaments and biological substances
CPT/HCPCS: 10005; 19000; 36415; 76942; 85610; 85730; 87071; 87205; 88108; 88305

== ENCOUNTER 2025-08-07 20:34 | Emergency (ER) | payer MEDICARE, OTHER ==
[~2025-08-07] VITALS: Ht 152.4 cm; Wt 68.9 kg
[~2025-08-07 20:34] MED LIST changes: +KETO10TA2 PO; +METH-662 PO
--- NOTE | 2025-08-07 21:52 | HMCIMG ---
EXAM: CT Head Without IV Contrast. CLINICAL HISTORY: Patient sustained a fall with unknown loss of consciousness. TECHNIQUE: Axial computed tomography images of the head/brain were obtained without intravenous contrast. COMPARISON: CT head dated June 14, 2025. FINDINGS: BRAIN: Periventricular hypodensities concerning for chronic microangiopathic ischemic changes. Mild diffuse cerebral atrophy with prominence of the cortical sulci, basal cisterns, and bilateral Sylvian fissures. No evidence of acute hemorrhage, mass lesion, or acute territorial infarct. No midline shift or extra-axial collections. VENTRICLES: No hydrocephalus. ORBITS: Unremarkable. SINUSES AND MASTOIDS: The paranasal sinuses and mastoid air cells are clear. BONES: No fracture. SOFT TISSUES: Unremarkable. IMPRESSION: No acute intracranial abnormality. Mild diffuse cerebral atrophy. Chronic microangiopathic ischemic changes. /[place]
[2025-08-07] MEDS ORDERED: LIDO1ADH71 TP (22:45)
[2025-08-07] MEDS ORDERED: CYCL10TA16 PO (22:45)
[2025-08-07] MEDS ORDERED: MELO-106 PO (22:45)
--- NOTE | 2025-08-07 22:46 | ERN ---
General Chief Complaint: Mechanical Fall Stated Complaint: C/O PAIN TO RT KNEE, BODY PAIN AFTER FALL Time Seen by MD: 20:55 History of Present Illness Initial Comments 65-year-old female with a extensive past medical history including right total knee replacement, left total knee replacement, chronic back and leg pain here for evaluation of right knee pain status post fall. Patient was walking at home when she had a mechanical fall tripping over a garden hose falling on her right knee and hitting her head. She did not lose consciousness. She is not on any blood thinners. She does not endorse a history of altered mental status. She is currently concerned about the right knee pain and head pain. Allergies: Coded Allergies: shrimp (Unverified Allergy, Unknown, 05/16/19) Home Meds Active Scripts Meloxicam (Meloxicam) 7.5 Mg Tablet, 1 TAB PO DAILY for 7 Days, #7 TAB 0 Refills Prov:REJI THOMAS MD 08/07/25 Lidocaine (Lidocaine Pain Relief) 4 % Adh..patch, 1 PATCH TP DAILY for 10 Days, #10 PATCH 0 Refills Prov:REJI THOMAS MD 08/07/25 Cyclobenzaprine HCl (Flexeril) 10 Mg Tab, 1 TAB PO HS for muscle spasms for 7 Days, #7 TAB 0 Refills Prov:REJI THOMAS MD 08/07/25 Methocarbamol (Robaxin) 750 Mg Tab, 1 TAB PO BID for 10 Days, #20 TAB 0 Refills Prov:BUSTER DON 06/14/25 Ketorolac Tromethamine (Ketorolac Tromethamine) 10 Mg Tablet, 1 TAB PO BID for pain for 5 Days, #10 TAB 0 Refills Prov:BUSTER DON 06/14/25 Prednisone (Prednisone) 20 Mg Tablet, 40 MG PO DAILY for 5 Days, #5 TAB 0 Refills Prov:JOS VILLALOBOS MD 01/11/25 Pantoprazole Sodium (Protonix) 40 Mg Ectab, 1 TAB PO DAILY PRN for GI UPSET/UPSET STOMACH for 30 Days, #30 TAB 0 Refills Prov:JOS VILLALOBOS MD 01/11/25 Reported Medications Hydrocodone/Acetaminophen (Hydrocodon-Acetaminophn 10-325) 10 Mg-325 Mg Tablet, 1 TAB PO Q6HPRN PRN for pain for 5 Days, #10 TAB 0 Refills 12/13/24 Multivitamin (Multi Vitamin Daily) 1 Each Tablet, 1 EACH PO DAILY, TAB 12/13/24 Tabitha [place]/Linoleic/Gamoleni (Evening [place] 1,000 mg Sftg) 1,000 Mg Capsule, 1000 MG PO DAILY, CAP 12/13/24 Levothyroxine Sodium (Synthroid) 100 Mcg Tablet, 100 MCG PO DAILY, TAB 12/13/24 Furosemide (Furosemide) 20 Mg Tablet, 20 MG PO DAILY, TAB 12/13/24 Clonazepam (Clonazepam) 1 Mg Tablet, 1 TAB PO TID for 30 Days, #90 TAB 0 Refills 12/13/24 Bupropion HCl (Bupropion HCl Sr) 200 Mg Tablet.er, 1 TAB PO AMNOON for 30 Days, #30 TAB 0 Refills 12/13/24 Mirtazapine (Mirtazapine) 15 Mg Tab.rapdis, 2 TAB PO HS for 30 Days, #30 TAB 0 Refills 12/13/24 [place]-3 Acid Ethyl Esters (Lovaza) 1 Gram Capsule, 2 CAP PO BID for 30 Days, #120 CAP 0 Refills 12/13/24 Atorvastatin Calcium (Atorvastatin Calcium) 40 Mg Tablet, 40 MG PO HS, TAB 03/09/21 Amlodipine Besylate (Amlodipine Besylate) 10 Mg Tablet, 10 MG PO DAILY, TAB 03/09/21 Past Medical History Past Medical History: Hypertension Past Surgical History: Other Surgical History Other: RT BREAST BIOPSY, BREAST REDUCTION; KNEE SX Family History Family History: Negative Social History Social History: Negative, Lives with family, Other Female( History) History: Not Applicable Neuro: (+) headache; (-) altered mental status Review of Systems: was completed, & the rest were negative. Physical Exam General Appearance: (+) no apparent distress Orientation: (+) alert, (+) oriented x 3 Eye: bilateral eye normal inspection, bilateral eye PERRL, bilateral eye EOMI Ear, Nose, Throat: (+) hearing grossly normal, (+) normal ENT inspection, (+) moist mucous membraine, (+) normal pharynx Neck: (+) normal inspection Respiratory: (+) chest non-tender, (+) lungs clear, (+) well ventilated Heart: (+) regular; (-) murmur Vascular: (+) no edema, (+) normal peripheral pulse Gastrointestinal: (+) soft, (+) non-tender Extremities Comment Decreased range of motion of the right leg secondary to pain. Results EKG/XRAY/US/CT/MRI CT Scan Comment PATIENT: LUIS LÓPEZ MR#: [id number] : 1960 SEX: F AGE: 65 LOCATION: [facility] ORDER 56 STATUS: [facility] REPORT#: [id number] SERVICE 55 REASON: fall, unknown loc ORDERING PHYSICIAN: REJI THOMAS MD PROCEDURE: HEAD WO - CT HEAD/BRAIN W/O CONTRAST EXAM: CT Head Without IV Contrast. CLINICAL HISTORY: Patient sustained a fall with unknown loss of consciousness. TECHNIQUE: Axial computed tomography images of the head/brain were obtained without intravenous contrast. COMPARISON: CT head dated June 14, 2025. FINDINGS: BRAIN: Periventricular hypodensities concerning for chronic microangiopathic ischemic changes. Mild diffuse cerebral atrophy with prominence of the cortical sulci, basal cisterns, and bilateral Sylvian fissures. No evidence of acute hemorrhage, mass lesion, or acute territorial infarct. No midline shift or extra-axial collections. VENTRICLES: No hydrocephalus. ORBITS: Unremarkable. SINUSES AND MASTOIDS: The paranasal sinuses and mastoid air cells are clear. BONES: No fracture. SOFT TISSUES: Unremarkable. IMPRESSION: No acute intracranial abnormality. Mild diffuse cerebral atrophy. Chronic microangiopathic ischemic changes. /[facility] 65-year-old female here for evaluation of right knee pain and head pain status post fall. CT and x-rays to be done at this time. Pain analgesics given. ED Course Orders Procedure Category Date Status Time Ct Head/Brain W/O CT 08/07/25 Resulted Contrast 20:56 Knee 3vws Rt RAD 08/07/25 Resulted 20:56 Ketorolac PHA 08/07/25 Complete Tromethamine 15mg/Ml 23:00 Lidocaine (Lidocaine PHA 08/07/25 Complete Patch 4%) 23:00 Hydrocodone/Apap PHA 08/07/25 Complete 5/325 ([place] 5/325mg) 23:00 Cyclobenzaprine Hcl PHA 08/07/25 Complete (Cyclobenzaprine Hcl 23:00 Current Medications Medications (Trade) Dose Ordered Sig/William Route PRN Reason Start Time Stop Time Status Last Admin Dose Admin Acetaminophen/ Hydrocodone Bitart (NORco 5/325MG) 1 tab ONCE ONCE PO 08/07/25 23:00 08/07/25 23:01 DC Cyclobenzaprine HCl (Cyclobenzaprine HCl) 10 mg ONCE ONCE PO 08/07/25 23:00 08/07/25 23:01 DC Ketorolac Tromethamine (toRADol) 15 mg ONCE ONCE IM 08/07/25 23:00 08/07/25 23:01 DC Lidocaine (Lidocaine Patch 4%) 1 each ONCE ONCE TP 08/07/25 23:00 08/07/25 23:01 DC Vital Signs Date Time Temp Pulse Resp B/P (MAP) Pulse Ox O2 Delivery O2 Flow Rate FiO2 08/07/25 20:40 98.1 90 20 161/83 97 Room Air DX & DISP Disposition: Discharge Departure Impression: Primary Impression: Fall Additional Impression: Contusion of right knee Condition: Stable Scripts Meloxicam (Meloxicam) 7.5 Mg Tablet 1 TAB PO DAILY for 7 Days, #7 TAB 0 Refills Prov: REJI THOMAS MD 08/07/25 Lidocaine (Lidocaine Pain Relief) 4 % Adh..patch 1 PATCH TP DAILY for 10 Days, #10 PATCH 0 Refills Prov: REJI THOMAS MD 08/07/25 Cyclobenzaprine HCl (Flexeril) 10 Mg Tab 1 TAB PO HS for muscle spasms for 7 Days, #7 TAB 0 Refills Prov: REJI THOMAS MD 08/07/25 Referrals: BUNNY AGUILAR MD (PCP) REJI THOMAS MD Aug 07, 2025 22:46
--- NOTE | 2025-08-07 22:57 | HMCIMG ---
EXAM: CR right Knee, 3 View. CLINICAL HISTORY: fall on knee COMPARISON: None provided. FINDINGS: BONES: No acute fracture or aggressive appearing osseous lesion. JOINTS: Cemented right total knee arthroplasty near anatomic alignment with no periprosthetic fracture appreciated. SOFT TISSUES: The soft tissues are unremarkable. IMPRESSION: 1. No acute findings. 2. Right total knee arthroplasty in near anatomic alignment. /[place]
[2025-08-07] MEDS: LIDOCAINE 4% ADH..PATCH TP ONE (23:47)
[2025-08-07] MEDS: CYCLOBENZAPRINE HCL 10 MG TABLET PO ONE (23:47)
[2025-08-07] MEDS: HYDROcodone/APAP 5/325 1 TAB TABLET PO ONE (23:47)
[2025-08-08 00:03] VITALS: BP 148/90; PULSE 69; RESP 18; TEMP 98.2; O2SAT 98
== END 2025-08-08 00:09 | disposition home or self-care (01) ==
LOC: EDH 20:34
DX: S80.01XA Contusion of right knee, initial encounter (principal); R51.9 Headache, unspecified; G89.29 Other chronic pain; I10 Essential (primary) hypertension; Z91.013 Allergy to seafood; Z79.899 Other long term (current) drug therapy; Z79.1 Long term (current) use of non-steroidal anti-inflammatories (NSAID); Z79.52 Long term (current) use of systemic steroids; Z79.890 Hormone replacement therapy; Z96.653 Presence of artificial knee joint, bilateral; W18.09XA Striking against other object with subsequent fall, initial encounter; Y93.01 Activity, walking, marching and hiking; Y92.89 Other specified places as the place of occurrence of the external cause; Y99.8 Other external cause status
CPT/HCPCS: 99285; 70450; 73562; 96372; J1885

== ENCOUNTER 2025-08-29 21:31 | Emergency (ER) | payer MEDICARE, OTHER ==
[~2025-08-29] VITALS: Ht 152.4 cm; Wt 70.3 kg
[2025-08-29] MEDS: GLUCAGON 1MG KIT 1 MG ML IM ONE ×2 (21:49→23:49)
--- NOTE | 2025-08-29 22:07 | ERN ---
General Chief Complaint: Choking Stated Complaint: C/O CHOKING ON PIECE OF CANDY, ANXIETY Time Seen by MD: 21:33 History of Present Illness Initial Comments 65-year-old female here for evaluation of choking episodes. Patient states that she was taking her pills earlier this morning when she tried to swallow them. She felt as if they got stuck and since then she has been having choking episodes and coughing episodes to the point where she decided to come to the emergency room today for evaluation. Denies any throat closing. Has had vomiting. States that she is able to tolerate fluids. She was concerned about the choking thus she decided to come in the emergency room for evaluation. No fever no cough no shortness a breath. No nausea or diarrhea. Allergies: Coded Allergies: shrimp (Unverified Allergy, Unknown, 05/16/19) Home Meds Active Scripts Meloxicam (Meloxicam) 7.5 Mg Tablet, 1 TAB PO DAILY for 7 Days, #7 TAB 0 Refills Prov:REJI THOMAS MD 08/07/25 Lidocaine (Lidocaine Pain Relief) 4 % Adh..patch, 1 PATCH TP DAILY for 10 Days, #10 PATCH 0 Refills Prov:REJI THOMAS MD 08/07/25 Cyclobenzaprine HCl (Flexeril) 10 Mg Tab, 1 TAB PO HS for muscle spasms for 7 Days, #7 TAB 0 Refills Prov:REJI THOMAS MD 08/07/25 Methocarbamol (Robaxin) 750 Mg Tab, 1 TAB PO BID for 10 Days, #20 TAB 0 Refills Prov:BUSTER DON 06/14/25 Ketorolac Tromethamine (Ketorolac Tromethamine) 10 Mg Tablet, 1 TAB PO BID for pain for 5 Days, #10 TAB 0 Refills Prov:BUSTER DON 06/14/25 Prednisone (Prednisone) 20 Mg Tablet, 40 MG PO DAILY for 5 Days, #5 TAB 0 Refills Prov:JOS VILLALOBOS MD 01/11/25 Pantoprazole Sodium (Protonix) 40 Mg Ectab, 1 TAB PO DAILY PRN for GI UPSET/UPSET STOMACH for 30 Days, #30 TAB 0 Refills Prov:JOS VILLALOBOS MD 01/11/25 Reported Medications Hydrocodone/Acetaminophen (Hydrocodon-Acetaminophn 10-325) 10 Mg-325 Mg Tablet, 1 TAB PO Q6HPRN PRN for pain for 5 Days, #10 TAB 0 Refills 12/13/24 Multivitamin (Multi Vitamin Daily) 1 Each Tablet, 1 EACH PO DAILY, TAB 12/13/24 Tabitha [place]/Linoleic/Gamoleni (Evening [place] 1,000 mg Sftg) 1,000 Mg Capsule, 1000 MG PO DAILY, CAP 12/13/24 Levothyroxine Sodium (Synthroid) 100 Mcg Tablet, 100 MCG PO DAILY, TAB 12/13/24 Furosemide (Furosemide) 20 Mg Tablet, 20 MG PO DAILY, TAB 12/13/24 Clonazepam (Clonazepam) 1 Mg Tablet, 1 TAB PO TID for 30 Days, #90 TAB 0 Refills 12/13/24 Bupropion HCl (Bupropion HCl Sr) 200 Mg Tablet.er, 1 TAB PO AMNOON for 30 Days, #30 TAB 0 Refills 12/13/24 Mirtazapine (Mirtazapine) 15 Mg Tab.rapdis, 2 TAB PO HS for 30 Days, #30 TAB 0 Refills 12/13/24 [place]-3 Acid Ethyl Esters (Lovaza) 1 Gram Capsule, 2 CAP PO BID for 30 Days, #120 CAP 0 Refills 12/13/24 Atorvastatin Calcium (Atorvastatin Calcium) 40 Mg Tablet, 40 MG PO HS, TAB 03/09/21 Amlodipine Besylate (Amlodipine Besylate) 10 Mg Tablet, 10 MG PO DAILY, TAB 03/09/21 Past Medical History Past Medical History: Anxiety, Hypertension Past Surgical History: None Surgical History Other: RT BREAST BIOPSY, BREAST REDUCTION; KNEE SX Family History Family History: Negative Social History Social History: Negative, Lives with family, Other Female( History) History: Not Applicable Results Laboratory and Microbiology Lab and Micro Result Laboratory Tests Test 08/29/25 22:56 Whole Blood Glucose 219 MG/DL (70-110) H MDM 65-year-old female here for evaluation of food impaction in his esophagus. She was given two 1 mg glucagon injections which improved her swallowing ability. She was able to tolerate liquids without issue. No emesis after tolerating the fluids. She does have a history of anxiety and is requesting some medication to help her sleep at this time. I will give her a dose of Benadryl prior to her discharge. She was advised to follow up with her PCP and her city wellness coordinator tomorrow for further management and evaluation of food impaction if symptoms persist. If she is unable to tolerate any fluids she is to come back immediately to the emergency room. ED Course Orders Procedure Category Date Status Time Glucagon 1mg Kit PHA 08/29/25 Complete (Glucagon 1mg Kit) 22:00 Chest 1vw RAD 08/29/25 Resulted 21:40 Ketorolac PHA 08/29/25 Complete Tromethamine 15mg/Ml 23:00 Glucagon 1mg Kit PHA 08/29/25 Complete (Glucagon 1mg Kit) 23:00 0.9%Nacl 1000ml (Ns PHA 08/29/25 In Process 1000ml) 23:00 Ondansetron 4mg Inj PHA 08/29/25 Complete (Zofran 4mg Inj) 23:00 Current Medications Medications (Trade) Dose Ordered Sig/William Route PRN Reason Start Time Stop Time Status Last Admin Dose Admin Glucagon (Glucagon 1mg Kit) 1 mg ONCE ONCE IM 08/29/25 22:00 08/29/25 22:01 DC 08/29/25 21:49 Glucagon (Glucagon 1mg Kit) 1 mg ONCE ONCE IM 08/29/25 23:00 08/29/25 23:23 DC 08/29/25 23:49 Ketorolac Tromethamine (toRADol) 15 mg ONCE ONCE IM 08/29/25 23:00 08/29/25 23:22 DC 08/29/25 23:47 Ondansetron HCl (zoFRAN 4MG INJ) 4 mg ONCE ONCE IVP 08/29/25 23:00 08/29/25 23:22 DC 08/29/25 23:46 Sodium Chloride 1,000 ml @ 0 mls/hr Q0M IV 08/29/25 23:00 09/28/25 22:59 08/29/25 23:49 Vital Signs Date Time Temp Pulse Resp B/P (MAP) Pulse Ox O2 Delivery O2 Flow Rate FiO2 08/29/25 23:23 98.8 78 18 132/66 99 Room Air* 0 21 08/29/25 21:36 98.2 99 20 146/85 98 Room Air DX & DISP Disposition: Discharge Departure Impression: Primary Impression: Food impaction of esophagus Additional Impression: Anxiety Condition: Stable Scripts Ondansetron (Ondansetron Odt) 4 Mg Tab.rapdis 1 TAB PO Q6HPRN PRN for nausea/vomiting for 4 Days, #16 TAB 0 Refills Prov: REJI THOMAS MD 08/30/25 Referrals: BUNNY AGUILAR MD (PCP) REJI THOMAS MD Aug 29, 2025 22:07
--- NOTE | 2025-08-29 23:10 | HMCIMG ---
EXAM: CR Chest, 1 view CLINICAL HISTORY: Rule out aspiration. COMPARISON: None provided. FINDINGS: The lungs show no infiltrates or other acute findings. No pleural effusion or pneumothorax. The cardiomediastinal silhouette is within normal limits. No acute osseous abnormality. IMPRESSION: No aspiration pneumonia or acute cardiopulmonary process is evident on radiographic evaluation. /[place]
[2025-08-29 23:23] VITALS: BP 132/66; PULSE 78; RESP 18; TEMP 98.8; O2SAT 99
[2025-08-29] MEDS: 0.9%NACL 1000ML 1,000 ML IV SCH (23:49)
== END 2025-08-30 00:15 | disposition home or self-care (01) ==
LOC: EDH 21:31
DX: T18.128A Food in esophagus causing other injury, initial encounter (principal); F41.9 Anxiety disorder, unspecified; I10 Essential (primary) hypertension; Z79.1 Long term (current) use of non-steroidal anti-inflammatories (NSAID); Z79.52 Long term (current) use of systemic steroids; Z79.890 Hormone replacement therapy; Z79.899 Other long term (current) drug therapy; W44.F3XA Food entering into or through a natural orifice, initial encounter; Y93.89 Activity, other specified; Y92.89 Other specified places as the place of occurrence of the external cause; Y99.8 Other external cause status
CPT/HCPCS: 99284; 82948; 71045; 96372; 96374; J1610 ×3; J2405; J1885; J1200